=== PATIENT | female | born 1935 | race Caucasian/White ===

== ENCOUNTER 2017-12-25 17:11 | Emergency (ER) | payer MEDICARE, OTHER, SELFPAY ==
[2017-12-25 17:14] VITALS: BP 121/65; PULSE 84; RESP 16; TEMP 36.9; O2SAT 96; BMI 41.8
[2017-12-25 17:20] LABS: Bedside Glucose 153 mg/dL (70-110)
--- NOTE | 2017-12-25 17:39 | CT_ITS ---
STUDY: CT BRAIN WITHOUT CONTRAST REASON FOR EXAM: Female, 82 years old. Weakness. Syncope. RADIATION DOSAGE (If Supplied By Facility): CTDIvol = ( 45 ) mGy, DLP = ( 762 ) mGycm TECHNIQUE: Transaxial CT imaging of the brain was performed without administration of intravenous contrast material. Individualized dose optimization techniques were used for this CT. COMPARISON: None. FINDINGS: There is no acute bleed or infarct. There are chronic ischemic and atrophic changes. The ventricles are normal in configuration. There is no hydrocephalus. The visualized paranasal sinuses are clear. The mastoid air cells are well aerated. There is no skull fracture. CT/Brain/Head without Contrast IMPRESSION: No acute intracranial abnormality. Chronic ischemic and atrophic changes. Electronically Signed: Harinder Johnson, at 18:36 EDT Tel , Service support ,
--- NOTE | 2017-12-25 17:53 | ED.VISSUMM ---
- ER Visit Summary Date of Service: 12/25/17 Chief Complaint: Fall History of Present Illness: The patient is a 82 F presenting after fall. Patient states that her legs just gave out and she fell to the floor. She denies hitting her head or losing consciousness. She states she did not feel dizzy or lightheaded. She had no syncope. She denies chest pain or shortness of breath. She states she is now feeling improved. She denies injury with the fall. She has a history of diabetes but did not feel as if her blood sugar was low. Denies other complaints. Physical Examination: Vitals are stable. Patient is afebrile. Alert no acute distress. HEENT exam is unremarkable. Neck is supple. Nontender Lungs are clear and equal bilaterally. Heart is regular rate and rhythm. Abdomen is soft nontender nondistended. Extremities are unremarkable. Skin is warm and dry. No focal neurologic deficit. NIH 0 Remainder of exam is unremarkable. Emergency Department Course and Treatment: EKG is sinus rate of 70 with no acute ischemic changes. CT head shows no acute process. CBC, chemistries unremarkable other than glucose 138, BUN 22, creatinine 1.28. Urinalysis shows positive leukocytes and nitrites, 5-10 white blood cells. Troponin is negative. Urine culture was sent. Orthostatics were negative. Patient is feeling well in the emergency department. She is able to ambulate and tolerate p.o. in the emergency department. She is requesting to go home. She is given Keflex. She is advised to follow-up with her primary care physician. She is advised return to ED for worsening complaints. Disposition: Discharged home Impression: UTI, fall This note was generated with The [employer] dictation software. It may contain incorrect words, spelling, and punctuation that were not noted in review of the chart prior to signing ED Disposition - Plan for ED Patient: Chief Complaint: Syncope Instructions: ED UTI Cystitis Female Prescriptions: Cephalexin [Keflex] 500 mg PO BID #14 capsule Referrals: NOT,DEFINED [NON-STAFF] -
[2017-12-25 18:05] LABS: Mucous, Urine 0 SEEN /hpf (<or=2+); Red Blood Cells-Urine 0 SEEN /hpf (0-5)
[2017-12-25 18:28] LABS: Absolute Lymphocyte Count 1.44 X10^3/ul (0.83-4.51); Absolute Neutrophil Count 7.8 X10^3/uL (2.0-7.7); Basophil# 0.02 X10^3/uL; Basophil% 0.2 % (0-1); Eosinophil# 0.05 X10^3/uL; Eosinophils% 0.5 % (0-5); Hematocrit 41.1 % (37-47); Hemoglobin 13.6 g/dl (12.0-15.0); Lymphocyte # 1.44 X10^3/ul (4.0); Lymphocyte % 14.5 % (19-41); Mean Corp Hgb Conc 33.1 g/gl (32-36); Mean Corpuscular Hgb 30.1 pg (27.0-32.0); Mean Corpuscular Volume 90.9 fL (81-99); Mean Platelet Vol. 11.1 fl (6.2-12.0); Monocyte# 0.59 X10^3/uL; Neutrophil # 7.79 X10^3/uL (2.7-7.7); Neutrophil % 78.7 % (47-70); Platelet Count 197 K/mm3 (150-450); RBC Distribution Width CV 13.1 % (11.6-14.6); RBC Distribution Width SD 43.2 fl (35.1-43.9); Red Blood Count 4.52 M/mm3 (4.2-5.4); White Blood Count 9.9 K/mm3 (4.4-11.0)
[2017-12-25 18:29] LABS: POSITIVE COUNT NO; POSITIVE DIFFERENTIAL NO; POSITIVE MORPHOLOGY NO
[2017-12-25 18:36] LABS: Color, Urine Yellow (Yellow); Glucose, Dipstick Normal (Normal); Ketone-Dipstick 5 mg/dl (Negative); Leukocyte Esterase-Dipstick 100 /ul (Negative); Nitrite-Dipstick Positive (Negative); Occult Blood-Urine 25 /ul (Negative); Protein-Dipstick 30 mg/dl (Negative); Urine Bilirubin Dipstick Negative (Negative); Urine Clarity Cloudy (Clear); Urine Urobilinogen Normal (Normal)
[2017-12-25 18:45] LABS: Anion Gap 9 (5-15); BUN 22 mg/dL (7-18); BUN/Creat Ratio 17.2 RATIO (10-20); Calcium,Total 9.1 mg/dL (8.5-10.1); Chloride 104 mmol/L (98-107); Creatinine, Serum 1.28 mg/dL (0.55-1.02); EST Glomerular Filtration Rate 43 mL/min (>60); Est Glom Filt Rate - Afr Amer 51 mL/min (>60); Estimated Creatinine Clearance 32.27 ml/min; Glucose 138 mg/dL (74-106); Potassium 4.1 mmol/L (3.5-5.1); Sodium Level 140 mmol/L (136-145)
[2017-12-25 18:50] LABS: Bacteria 2+ /hpf (None Seen); Hyaline Cast 0-5 SEEN /lpf (0-5); Squamous Epithelial Cells - UA 0-5 SEEN /hpf (5-10); White Blood Cells 5-10 SEEN /hpf (0-5)
[2017-12-25 19:03] VITALS: BP 126/67; BP 142/65; BP 142/91; PULSE 65; PULSE 67; PULSE 81
[2017-12-25 19:51] VITALS: BP 126/71; PULSE 85; RESP 16; O2SAT 96
--- NOTE | 2017-12-25 21:33 | ED.DEP ---
ED Disposition - Plan for ED Patient: Chief Complaint: Syncope Instructions: ED UTI Cystitis Female Prescriptions: Cephalexin [Keflex] 500 mg PO BID #14 capsule Referrals: NOT,DEFINED [NON-STAFF] -
[2017-12-25 21:37] VITALS: BP 132/61; PULSE 65; RESP 20; O2SAT 97
[2017-12-25] MEDS: Cephalexin 250 MG Capsule 500 MG PO (21:37)
== END 2017-12-25 21:43 | disposition home or self-care (01) ==
PROVIDERS: Emergency Provider Emergency Medicine
DX: N39.0 Urinary tract infection, site not specified (principal); W19.XXXA Unspecified fall, initial encounter; Y93.9 Activity, unspecified; Y92.9 Unspecified place or not applicable; E11.9 Type 2 diabetes mellitus without complications; Z79.84 Long term (current) use of oral hypoglycemic drugs
CPT/HCPCS: 70450; 80048; 81001; 82962; 84484; 85025; 87077; 87086; 87088; 87186; 93005; 99285

== ENCOUNTER → 2018-07-23 05:30 | Outpatient (REF) | payer MEDICARE, OTHER, SELFPAY ==
[2018-07-23 08:40] LABS: Hematocrit 33.9 % (37-47); Hemoglobin 10.1 g/dl (12.0-15.0); Mean Corp Hgb Conc 29.8 g/gl (32-36); Mean Corpuscular Hgb 29.8 pg (27.0-32.0); Mean Platelet Vol. 11.3 fl (6.2-12.0); Platelet Count 160 K/mm3 (150-450); RBC Distribution Width SD 52.9 fl (35.1-43.9); Red Blood Count 3.39 M/mm3 (4.2-5.4); White Blood Count 5.2 K/mm3 (4.4-11.0)
[2018-07-23 08:42] LABS: Scan Indicated on CBC? Y/N NO
[2018-07-23 09:09] LABS: BNP,B-Type NATRIURETIC PEPTIDE 296.2 pg/mL (0-100)
[2018-07-23 09:14] LABS: BUN 22 mg/dL (7-18); Creatinine, Serum 1.14 mg/dL (0.55-1.02); EST Glomerular Filtration Rate 49 mL/min (>60); Glucose 123 mg/dL (74-106)
[2018-07-23 09:15] LABS: AST(SGOT) 14 U/L (15-37); Alanine Aminotransfer ALT/SGPT 19 U/L (13-56); Albumin, Serum 3.3 g/dL (3.2-5.0); Alkaline Phosphatase 118 U/L (45-117); Anion Gap 7 (5-15); BUN/Creat Ratio 19.3 RATIO (10-20); Calcium,Total 8.3 mg/dL (8.5-10.1); Chloride 110 mmol/L (98-107); Est Glom Filt Rate - Afr Amer 59 mL/min (>60); Globulin 3.3 g/dL (2.2-4.2); Potassium 4.3 mmol/L (3.5-5.1); Protein, Total 6.6 g/dL (6.4-8.2); Sodium Level 143 mmol/L (136-145); Thyroid Stim Hormone (TSH) 4.06 uIU/mL (0.358-3.74)
[2018-07-29 10:19] VITALS: BMI 48.6
== END ==
PROVIDERS: Visit Provider Family Medicine
DX: E11.9 Type 2 diabetes mellitus without complications (principal); I10 Essential (primary) hypertension; R53.83 Other fatigue; Z79.899 Other long term (current) drug therapy
CPT/HCPCS: 36415; 80053; 83880; 84443; 85027

== ENCOUNTER 2018-07-25 16:03 | Inpatient (IN) | payer MEDICARE, OTHER, SELFPAY ==
[2018-07-25] VITALS (12 sets, daily range): BP systolic 101–153; BP diastolic 73–92; PULSE 59–127; RESP 16–26; TEMP 36.3–36.9; O2SAT 92–100; BMI 48.6; BMI 49.1; BMI 49.2
--- NOTE | 2018-07-25 16:31 | RAD_ITS ---
STUDY: X-RAY CHEST REASON FOR EXAM: Female, 83 years old. Chest pain TECHNIQUE: AP COMPARISON: None. FINDINGS: Central pulmonary vascular congestion with interstitial thickening in the central portions of the lungs in the lung bases. No airspace consolidation. No sizable pleural effusion. There is mild cardiac enlargement. Normal mediastinum and rebekah. Normal visualized aortic arch and descending thoracic aorta. No acute bony process. There is no demonstrated abnormality of the visualized soft tissue structures of the upper abdomen. RAD/Chest 1 View (Portable) IMPRESSION: 1. Vascular congestion with interstitial thickening suggesting fluid overload/CHF. No sizable pleural effusion. 2. No airspace consolidation. Electronically Signed: Obed Curiel MD at 17:23 EST , Service support ,
--- NOTE | 2018-07-25 16:31 | EKG12_ITS ---
Test Reason : EDEMA Blood Pressure : / mmHG Vent. Rate : 115 BPM Atrial Rate : 129 BPM P-R Int : 000 ms QRS Dur : 074 ms QT Int : 352 ms P-R-T Axes : 000 073 012 degrees QTc Int : 486 ms Atrial fibrillation with rapid ventricular response with premature ventricular or aberrantly conducte d complexes Low voltage QRS Cannot rule out Anterior infarct , age undetermined Abnormal ECG Confirmed by TERRANCE ESQUIVEL, PAULETTE ([id number]), video tape editor FLO KNIGHT ([id number]) on 07/28/2018 10:02:31 AM Referred By: John Hardy Confirmed By:PAULETTE CARLOS MD
[2018-07-25 16:44] LABS: Absolute Neutrophil Count 3.4 X10^3/uL (2.0-7.7); Basophil# 0.01 X10^3/uL; Basophil% 0.2 % (0-1); Eosinophil# 0.16 X10^3/uL; Eosinophils% 3.1 % (0-5); Hematocrit 35.9 % (37-47); Lymphocyte % 21.2 % (19-41); Mean Corp Hgb Conc 30.6 g/gl (32-36); Mean Corpuscular Hgb 30.1 pg (27.0-32.0); Mean Corpuscular Volume 98.4 fL (81-99); Mean Platelet Vol. 10.9 fl (6.2-12.0); Monocyte# 0.52 X10^3/uL; Neutrophil # 3.38 X10^3/uL (2.7-7.7); Neutrophil % 65.3 % (47-70); Platelet Count 181 K/mm3 (150-450); RBC Distribution Width CV 15.4 % (11.6-14.6); RBC Distribution Width SD 54.5 fl (35.1-43.9); Red Blood Count 3.65 M/mm3 (4.2-5.4); White Blood Count 5.2 K/mm3 (4.4-11.0)
[2018-07-25 16:45] LABS: POSITIVE COUNT NO; POSITIVE DIFFERENTIAL NO; POSITIVE MORPHOLOGY NO
[2018-07-25 16:52] LABS: International Normalized Ratio 1.1; Prothrombin Time (Protime)PT. 14.4 SECONDS (11.7-14.9)
[2018-07-25 16:53] LABS: Partial Thromboplast Time 24.9 Seconds (24.1-36.2)
[2018-07-25 16:56] LABS: Anion Gap 9 (5-15); BUN 21 mg/dL (7-18); BUN/Creat Ratio 19.4 RATIO (10-20); Calcium,Total 8.6 mg/dL (8.5-10.1); Chloride 107 mmol/L (98-107); Creatinine, Serum 1.08 mg/dL (0.55-1.02); EST Glomerular Filtration Rate 52 mL/min (>60); Est Glom Filt Rate - Afr Amer 63 mL/min (>60); Glucose 155 mg/dL (74-106); Potassium 3.9 mmol/L (3.5-5.1); Sodium Level 143 mmol/L (136-145)
[2018-07-25] MEDS: Metoprolol Tartrate 5 MG/5 ML Vial IV (17:15)
[2018-07-25 17:21] LABS: BNP,B-Type NATRIURETIC PEPTIDE 310.3 pg/mL (0-100)
[2018-07-25] MEDS: Metoprolol Tartrate 25 MG Tablet 50 MG PO (17:41)
--- NOTE | 2018-07-25 17:57 | NURSING ---
DR UGO SYED
--- NOTE | 2018-07-25 18:00 | NURSING ---
PCU NEW ONSET AFIB, CHF UGO
--- NOTE | 2018-07-25 18:02 | ED.VISSUMM ---
- ER Visit Summary Date of Service: 07/25/18 Chief Complaint: Wheezing increased lower extremity swelling History of Present Illness: The patient is a 83 F 2 months progressive lower extremity swelling with wheezing. No history of asthma or COPD. No chest pains no palpitations. No fevers. History of diabetes hypercholesterolemia and hypothyroid. Here with daughter from [place]. Reports staff from PCP office seen patient at facility on , blood work return elevated BNP of 249 also decreased iron was placed on iron supplements. Lasix 20 mg orally was started today with first dose. Denies history of [place] or heart failure. No history of cardiac dysrhythmias. Occasional alcohol denies tobacco or illicit drug use. Physical Examination: General: Alert and oriented ?3, no acute distress HEENT: Normocephalic, atraumatic. Moist mucosa membranes Neck: supple, nontender. Cardiovascular: Irregularly irregular tachycardic, no murmurs Respiratory: Normal breath sounds, symmetric, no distress Abdomen: Soft, nontender, nondistended Extremities: Nontender, no edema, pulses intact ?4 Neuro: no focal neurological deficits. Test Results: EKG: A. fib 115, no ST or T wave changes. Hemoglobin 11 white count 5.2. Potassium 3.9 creatinine 1.08. BNP 310 troponin negative. Chest x-ray with CHF findings. Emergency Department Course and Treatment: Patient A. kavon with RVR on arrival, clinical CHF findings. Workup initiated. BNP 310 chest x-ray with slight fluid overload. With her A. kavon was given 1 dose of Lopressor heart rate improved 80-90 is given 50 mg oral metoprolol. Heart rate sustained. With her CHF findings additional 40 mill grams IV Lasix was given. Her chads 2 score is 2. I discussed with hospitalist Dr. Hardy for admission. Will hold anticoagulants at this time during discussion. Admitted to PCU. Treatment Plan: [] Disposition: Admission Impression: 1. New onset A. fib rate controlled 2. New onset CHF This note was generated with [employer] dictation software. It may contain incorrect words, spelling, and punctuation that were not noted in review of the chart prior to signing ED Disposition - Plan for ED Patient: Disposition: Acute Care Hospital [facility] Diagnosis: New onset atrial fibrillation, New onset of congestive heart failure Referrals: Dorina Hernandez MD [Primary Care Provider] -
--- NOTE | 2018-07-25 18:06 | ED.DCSUM_ITS ---
- ER Visit Summary Date of Service: 07/25/18 Chief Complaint: Wheezing increased lower extremity swelling History of Present Illness: The patient is a 83 F 2 months progressive lower extremity swelling with wheezing. No history of asthma or COPD. No chest pains no palpitations. No fevers. History of diabetes hypercholesterolemia and hypothyroid. Here with daughter from [place]. Reports staff from PCP office seen patient at facility on , blood work return elevated BNP of 249 also decreased iron was placed on iron supplements. Lasix 20 mg orally was started today with first dose. Denies history of [place] or heart failure. No history of cardiac dysrhythmias. Occasional alcohol denies tobacco or illicit drug use. Physical Examination: General: Alert and oriented ?3, no acute distress HEENT: Normocephalic, atraumatic. Moist mucosa membranes Neck: supple, nontender. Cardiovascular: Irregularly irregular tachycardic, no murmurs Respiratory: Normal breath sounds, symmetric, no distress Abdomen: Soft, nontender, nondistended Extremities: Nontender, no edema, pulses intact ?4 Neuro: no focal neurological deficits. Test Results: EKG: A. fib 115, no ST or T wave changes. Hemoglobin 11 white count 5.2. Potassium 3.9 creatinine 1.08. BNP 310 troponin negative. Chest x- ray with CHF findings. Emergency Department Course and Treatment: Patient A. kavon with RVR on arrival, clinical CHF findings. Workup initiated. BNP 310 chest x-ray with slight fluid overload. With her A. kavon was given 1 dose of Lopressor heart rate improved 80- 90 is given 50 mg oral metoprolol. Heart rate sustained. With her CHF findings additional 40 mill grams IV Lasix was given. Her chads 2 score is 2. I discussed with hospitalist Dr. Hardy for admission. Will hold anticoagulants at this time during discussion. Admitted to PCU. Treatment Plan: [] Disposition: Admission Impression: 1. New onset A. fib rate controlled 2. New onset CHF This note was generated with Gn[employer] dictation software. It may contain incorrect words, spelling, and punctuation that were not noted in review of the chart prior to signing ED Disposition - Plan for ED Patient: Disposition: Acute Care Hospital [facility] Diagnosis: New onset atrial fibrillation, New onset of congestive heart failure Referrals: Dorina Hernandez MD [Primary Care Provider] -
[2018-07-25] MEDS: Furosemide 40 MG/4 ML Vial IV (18:19)
--- NOTE | 2018-07-25 18:21 | HP.PCM_ITS ---
Problem List (1) New onset atrial fibrillation Status: Acute (2) New onset of congestive heart failure Status: Acute History of Present Illness Date of Admission: 07/25/18 Chief Complaint: shortness of breath. The patient is a 83 year old F for the past few months has been having progressive dyspnea on exertion and edema. Presented to the emergency room today and found to be in atrial fibrillation with RVR. Additionally, was found to be in CHF as well. Received 40 mg of IV Lasix and 50 mg of oral metoprolol. Patient's heart rate has improved and the patient is suddenly feeling better. Patient denies any history of heart failure nor atrial fibrillation before. She was not having chest pain or any palpitations. [] Past Medical History Medical History: Medical History (Last Updated 07/25/18 @ 18:19 by John Hardy DO) DM2 (diabetes mellitus, type 2) E11.9 Allergies No Known Allergies Allergy (Verified 07/25/18 16:04) Home Medications: Ambulatory Orders Medication Instructions Recorded Metformin HCl 500 mg PO BID 12/25/17 Atorvastatin Calcium 40 mg PO DAILY 07/25/18 Fluticasone 44 Mcg [Flovent (SP)] 2 puff INHALATION DAILY 07/25/18 Lasix 20 mg DAILY 07/25/18 Meloxicam [Mobic] 7.5 mg PO DAILY 07/25/18 Psychiatric History: No pertinent psych hx Smoking Status: Never smoker Tobacco Use: Non-smoker Alcohol: None - *Family History Maternal History Items: - - no heart disease Review of Systems Constitutional: Reports: Weight Change - Increased weight over the past few months unclear how much.. Denies: Anorexia, Chills, Fever, Night Sweats, Malaise, Weakness Eyes: Denies: Blurred vision, Double vision HEENT: Denies: Head Aches, Sinus Congestion, Sinus Drainage Cardiovascular: Reports: Edema. Denies: Chest Pain, Palpitations Respiratory: Reports: Shortness of Breath, Shortness of breath upon exertion Gastrointestinal: Denies: Abdominal Pain, Nausea, Vomiting Genitourinary: Denies: Dysuria Musculoskeletal: Denies: Joint Pain, Joint Tenderness Skin: Denies: Rash, Wounds Neurological: Denies: Blurred vision, Double vision, Focal weakness, Numbness, Tingling Psychiatric: Denies: Anxiety, Depression Endocrine: Reports: Change in Body Habitus. Denies: Heat/ Cold Intolerance Hematologic/ Lymphatic: Denies: Easy Bruising, Easy Bleeding, Hx of blood clot Comment: A 10 point review of systems were negative except as mentioned in the history of present illness and the other review of systems. VTE Information - Inpt Only VTE Present on Admission: No VTE Mechan Device Prophylaxis: None VTE Pharm Prophylaxis ordered?: Yes Patient Problems: Active and Suspected Problems (Last Updated 07/25/18 @ 18:19 by John Hardy DO) New onset atrial fibrillation (Acute) New onset of congestive heart failure (Acute) - Physical Exam General: Alert, No apparent distress HEENT: Atraumatic, Normocephalic, - - No scleral icterus Oral: Moist Mucosa, No Gingival or Mucosal Lesions/ Ulcerations Neck: No Nodes, Thyroid Normal Size and Texture, - - Positive JVD Lungs: Clear to auscultation, Diminished Cardiovascular: No murmurs, Irregular Rate, - - Distant heart sounds Abdomen: Bowel Sounds Present, Soft, Non Tender, Non-Distended, No Hepato- splenomegaly Extremities: No Calf Tenderness, Edema Skin: No rashes, No breakdown Musculoskeletal: No Tenderness to Palpation of Joints or Extremities, No Muscle Wasting Neurological: Sensory exam intact to light touch and pain, - - No clonus Psych/Mental Status: Normal Affect, Appropriate Vital Signs Temp Pulse Resp BP Pulse Ox 36.6 C 95 26 H 131/82 H 98 07/25/18 16:05 07/25/18 17:28 07/25/18 17:28 07/25/18 17:28 07/25/18 17:28 Oxygen Flow Rate (L/min) 3 Oxygen Delivery Method Room Air Weight: 136.622 kg Body Mass Index (BMI) 48.6 Laboratory Tests Past 24 Hrs 07/25/18 07/25/18 07/25/18 16:20 16:20 16:20 WBC 5.2 RBC 3.65 L Hgb 11.0 L Hct 35.9 L MCV 98.4 MCH 30.1 MCHC 30.6 L RDW 15.4 H RDW Differential 54.5 H Plt Count 181 MPV 10.9 Immature Gran % (Auto) 0.200 Neut % (Auto) 65.3 Lymph % (Auto) 21.2 [place] % (Auto) 10.0 Eos % (Auto) 3.1 Baso % (Auto) 0.2 Absolute Neuts (auto) 3.4 Absolute Lymphs (auto) 1.10 Total Counted Not Reportable PT 14.4 INR 1.1 APTT 24.9 Sodium 143 Potassium 3.9 Chloride 107 Carbon Dioxide 27.0 Anion Gap 9 BUN 21 H Creatinine 1.08 H Estim Creat Clear Calc 37.60 Est GFR (MDRD) Af Amer 63 Est GFR (MDRD) Non-Af 52 L BUN/Creatinine Ratio 19.4 Glucose 155 H Calcium 8.6 Troponin I < 0.015 B-Natriuretic Peptide 07/25/18 16:20 WBC RBC Hgb Hct MCV MCH MCHC RDW RDW Differential Plt Count MPV Immature Gran % (Auto) Neut % (Auto) Lymph % (Auto) [place] % (Auto) Eos % (Auto) Baso % (Auto) Absolute Neuts (auto) Absolute Lymphs (auto) Total Counted PT INR APTT Sodium Potassium Chloride Carbon Dioxide Anion Gap BUN Creatinine Estim Creat Clear Calc Est GFR (MDRD) Af Amer Est GFR (MDRD) Non-Af BUN/Creatinine Ratio Glucose Calcium Troponin I B-Natriuretic Peptide 310.3 H EKG showed atrial fibrillation with RVR but no acute changes. Chest x-ray showed bilateral pulmonary vascular congestion. Assessment/Plan All Active Problems (Last Updated 07/25/18 @ 18:19 by John Hardy DO) New onset atrial fibrillation (Acute) New onset of congestive heart failure (Acute) 1. Atrial fibrillation with RVR: Currently rate controlled after oral metoprolol. New diagnosis but I doubt new onset. [id number] score of 5. Patient will be on therapeutic Lovenox. Will need to adjust based on results of the echocardiogram if patient can go on to a novel anticoagulant versus Coumadin depending on her valves. We will hold off on cardiology consultation at this point time as patient seems to be improving but patient does have significant LV dysfunction or if atrial fibrillation becomes uncontrolled again then may consider consulting cardiology inpatient. If not, then patient will certainly need follow-up with cardiology outpatient. 2. Heart failure: Unclear type. Echocardiogram ordered to define if patient has preserved or reduced ejection fraction. Patient will be on Lasix 40 mg twice daily. Unclear if the A. fib with RVR because of CHF or vice versa. 3. Diabetes mellitus type 2: Hold metformin in light of the heart failure start sliding scale. Check an A1c. 4. DVT prophylaxis: Patient will be anticoagulated. Code Visit Inpatient E&M: 70735 Init Hosp L3
--- NOTE | 2018-07-25 18:52 | ECHOD_ITS ---
Reason For Study: CHF Procedure This was a 2D Doppler, Color Flow transthoracic echocardiogram. Exam performed portable in patient room. Left Ventricle Normal LV size. The estimated ejection fraction is 50 %. Stage 3 diastolic dysfunction. No regional wall motion abnormalities noted. Right Ventricle Normal RV size. Normal systolic function. Atria The left atrium is moderately enlarged. The right atrium is mildly enlarged. Mitral Valve Normal mitral valve. Mild (1+) eccentric mitral valve insufficiency. Tricuspid Valve Normal tricuspid valve. Aortic Valve Normal aortic valve. Trisinus/trileaflet aortic valve. Pulmonic Valve Normal pulmonic valve. Great Vessels Normal aortic root. The pulmonary artery is normal size. Normal inferior vena cava. Pericardium/Pleural No pericardial effusion. MMode/2D Measurements & Calculations LVIDd: 4.2 cm IVSd: 1.3 cm Ao root diam: 3.0 cm LVIDs: 2.1 cm LVPWd: 1.1 cm LA dimension: 4.1 cm RVDd: 3.4 cm FS: 49.8 % LAV(MOD-sp4): 76.9 ml LA A4 area: 25.0 cm2 RA A4 area: 23.1 cm2 Time Measurements MV dec time: 0.15 sec Doppler Measurements & Calculations MV E max aliyah: 110.5 cm/sec MV V2 max: 121.6 cm/sec Ao V2 max: 104.7 cm/sec MV A max aliyah: 41.0 cm/sec MV max P.9 mmHg Ao max P.4 mmHg MV E/A: 2.7 MV V2 mean: 48.9 cm/sec MV mean P.3 mmHg MV V2 VTI: 32.3 cm LV V1 max: 84.3 cm/sec PA V2 max: 61.5 cm/sec TR max aliyah: 217.6 cm/sec LV V1 max P.8 mmHg TR max P.9 mmHg Interpretation Summary Normal LV size. The estimated ejection fraction is 50 %. Stage 3 diastolic dysfunction. Mild (1+) eccentric mitral valve insufficiency. Ordering Physician: John Hardy Referring Physician: John Hardy Performed By: Guillermo Echavarria RCS
[2018-07-25 20:25] LABS: Bedside Glucose 148 mg/dL (70-110)
[2018-07-25] MEDS: Budesonide Respules 0.5 MG/2 ML AMPUL.NEB. INHALATION (20:54)
[2018-07-25] MEDS: Metoprolol Tartrate 50 MG Tablet PO (21:24)
[2018-07-25] MEDS: Enoxaparin 150 MG/ML Syringe 140 MG SC (21:24)
[2018-07-25] MEDS: Atorvastatin Calcium 40 MG Tablet PO (21:24)
[2018-07-26] VITALS (16 sets, daily range): BP systolic 112–132; BP diastolic 58–75; PULSE 71–86; RESP 16–20; TEMP 36.8–36.9; O2SAT 86–100
[2018-07-26 06:18] LABS: Hematocrit 33.2 % (37-47); Mean Corp Hgb Conc 30.1 g/gl (32-36); Mean Corpuscular Hgb 29.9 pg (27.0-32.0); Mean Corpuscular Volume 99.1 fL (81-99); Mean Platelet Vol. 11.3 fl (6.2-12.0); Platelet Count 159 K/mm3 (150-450); RBC Distribution Width CV 14.9 % (11.6-14.6); RBC Distribution Width SD 51.3 fl (35.1-43.9); Red Blood Count 3.35 M/mm3 (4.2-5.4); White Blood Count 4.8 K/mm3 (4.4-11.0)
[2018-07-26 06:21] LABS: Scan Indicated on CBC? Y/N NO
[2018-07-26 06:55] LABS: Bedside Glucose 108 mg/dL (70-110)
[2018-07-26 06:58] LABS: ALB/GLOB Ratio 0.9 RATIO (0.9-2.4); AST(SGOT) 17 U/L (15-37); Alanine Aminotransfer ALT/SGPT 24 U/L (13-56); Alkaline Phosphatase 108 U/L (45-117); Anion Gap 9 (5-15); BUN 21 mg/dL (7-18); BUN/Creat Ratio 21.8 RATIO (10-20); Calcium,Total 8.3 mg/dL (8.5-10.1); Chloride 109 mmol/L (98-107); Cholesterol 122 mg/dL (200); Creatinine, Serum 0.96 mg/dL (0.55-1.02); EST Glomerular Filtration Rate 59 mL/min (>60); Est Glom Filt Rate - Afr Amer 71 mL/min (>60); Globulin 3.2 g/dL (2.2-4.2); Glucose 112 mg/dL (74-106); High Density Lipoprotein 73 mg/dL; Protein, Total 6.2 g/dL (6.4-8.2); Sodium Level 144 mmol/L (136-145); Thyroid Stim Hormone (TSH) 3.09 uIU/mL (0.358-3.74); Triglycerides 61 mg/dL; Very Low Density Lipoprotein 12 mg/dL (5-40)
[2018-07-26] MEDS: Glucerna Shake 120 ML LIQUID PO ×2 (07:47→11:09)
[2018-07-26 08:06] LABS: Hemoglobin A1c 6.2 % (4.2-6.3)
--- NOTE | 2018-07-26 08:47 | CPS ---
pt placed back on 2 lpm...nurse aware
[2018-07-26] MEDS: Furosemide 40 MG/4 ML Vial IV ×2 (09:16→17:06)
[2018-07-26] MEDS: Enoxaparin 150 MG/ML Syringe 140 MG SC ×2 (09:17→21:06)
[2018-07-26] MEDS: Metoprolol Tartrate 50 MG Tablet PO ×2 (09:17→21:06)
[2018-07-26 11:16] LABS: Bedside Glucose 147 mg/dL (70-110)
--- NOTE | 2018-07-26 12:16 | PCM.PN.HOSP ---
Patient Problems: Active and Suspected Problems (Last Updated 07/25/18 @ 18:19 by John Hardy DO) New onset atrial fibrillation (Acute) New onset of congestive heart failure (Acute) Subjective: Patient seen and examined. She was admitted overnight with a complaint of shortness of breath and edema. On arrival in the ED, she was found to be in A. fib with RVR as well as CHF exacerbation of unknown EF. She was started on IV Lasix and on metoprolol. Patient seen and examined this morning. He had no complaints. Says shortness of breath had improved and palpation sounds are also improved. She is never been told she has heart failure or atrial fibrillation before. Review of systems otherwise negative. Labs and vitals reviewed. Vitals/I&O's: Vital Signs Temp Pulse Resp BP Pulse Ox 98.5 F 76 16 120/58 L 99 07/26/18 09:05 07/26/18 10:58 07/26/18 09:05 07/26/18 09:17 07/26/18 09:05 Oxygen Flow Rate (L/min) 2 Oxygen Delivery Method Nasal Cannula Weight: 300 lb 4.313 oz Body Mass Index (BMI) 49.1 Intake and Output for Last 24 Hours 07/24/18 07/25/18 07/27/18 23:59 23:59 00:59 Intake Total 100 / 100 360 / 360 Balance 100 / 100 360 / 360 General: Alert, Oriented x3, Cooperative, No apparent distress HEENT: Atraumatic, PERRLA, EOMI, Normocephalic Oral: Moist Mucosa Neck: Supple, No JVD, Negative Carotid Bruits Lungs: Clear to auscultation, Normal air movement, No rhonchi, No wheeze, No rales Cardiovascular: Normal S1, Normal S2, Irregular Rate Abdomen: Bowel Sounds Present, Soft, Non Tender, Non-Distended, No Hepato-splenomegaly Extremities: No clubbing, No cyanosis, No edema, Capillary Refill Less than 3 Seconds Skin: No rashes, No breakdown Musculoskeletal: No Tenderness to Palpation of Joints or Extremities Lymphatic: No Cervical, Supraclavicular, or Inguinal Adenopathy Neurological: Cranial nerves II-XII grossly intact, Neuro grossly intact, Motor Exam 5/5 strength throughout Psych/Mental Status: Normal Affect, Appropriate, Alert and oriented to time, place, person, mood and affect Laboratory Results 07/25/18 16:20: WBC 5.2, RBC 3.65 L, Hgb 11.0 L, Hct 35.9 L, MCV 98.4, MCH 30.1, MCHC 30.6 L, RDW 15.4 H, RDW Differential 54.5 H, Plt Count 181, MPV 10.9, Immature Gran % (Auto) 0.200, Neut % (Auto) 65.3, Lymph % (Auto) 21.2, [place] % (Auto) 10.0, Eos % (Auto) 3.1, Baso % (Auto) 0.2, Absolute Neuts (auto) 3.4, Absolute Lymphs (auto) 1.10, Total Counted Not Reportable 07/25/18 16:20: Sodium 143, Potassium 3.9, Chloride 107, Carbon Dioxide 27.0, Anion Gap 9, BUN 21 H, Creatinine 1.08 H, Estim Creat Clear Calc 37.60, Est GFR (MDRD) Af Amer 63, Est GFR (MDRD) Non-Af 52 L, BUN/Creatinine Ratio 19.4, Glucose 155 H, Calcium 8.6, Troponin I < 0.015 07/25/18 16:20: PT 14.4, INR 1.1, APTT 24.9 07/25/18 16:20: B-Natriuretic Peptide 310.3 H 07/25/18 19:51: Troponin I 0.016 07/25/18 19:55: POC Glucose 148 H 07/25/18 22:26: Troponin I 0.017 07/26/18 06:00: WBC 4.8, RBC 3.35 L, Hgb 10.0 L, Hct 33.2 L, MCV 99.1 H, MCH 29.9, MCHC 30.1 L, RDW 14.9 H, RDW Differential 51.3 H, Plt Count 159, MPV 11.3 07/26/18 06:00: Sodium 144, Potassium 4.0, Chloride 109 H, Carbon Dioxide 26.0, Anion Gap 9, BUN 21 H, Creatinine 0.96, Estim Creat Clear Calc 42.30, Est GFR (MDRD) Af Amer 71, Est GFR (MDRD) Non-Af 59 L, BUN/Creatinine Ratio 21.8 H, Glucose 112 H, Calcium 8.3 L, Total Bilirubin 0.70, AST 17, ALT 24, Alkaline Phosphatase 108, Total Protein 6.2 L, Albumin 3.0 L, Globulin 3.2, Albumin/Globulin Ratio 0.9, Triglycerides 61, Cholesterol 122, LDL Cholesterol 37, VLDL Cholesterol 12, HDL Cholesterol 73, TSH 3.09 07/26/18 06:00: Hemoglobin A1c 6.2 07/26/18 06:45: POC Glucose 108 07/26/18 11:07: POC Glucose 147 H Diagnostic Data Chest X-Ray 07/25/18 16:31 IMPRESSION: 1. Vascular congestion with interstitial thickening suggesting fluid overload/CHF. No sizable pleural effusion. 2. No airspace consolidation. Electronically Signed: Obed Curiel MD at 17:23 EST , Service support , Current Medications Acetaminophen (Tylenol) 650 mg PO Q6H PRN PRN PRN Reason: Mild Pain (1-3)/Temp > 100.7 F Atorvastatin Calcium (Lipitor) 40 mg PO DAILY@2200 [facility] Last Admin: 07/25/18 21:24 Dose: 40 mg Budesonide (Pulmicort Aerosol) 0.5 mg INHALATION Q12H.RT [facility] Last Admin: 07/26/18 08:00 Dose: Not Given Dextrose (D50w Syringe) 0 gm IV X1 PRN; Protocol PRN Reason: Hypoglycemia Enoxaparin Sodium (Lovenox) 140 mg 1 mg/kg (140 mg) SC Q12 [facility] Last Admin: 07/26/18 09:17 Dose: 140 mg Furosemide (Lasix) 40 mg IV BIDLX [facility] Last Admin: 07/26/18 09:16 Dose: 40 mg Glucagon () 1 mg IM .X1 PRN PRN Reason: Hypoglycemia Insulin Human Lispro (Humalog Kwikpen (Bkc)) 0 unit SQ TIDAC [facility]; Protocol Last Admin: 07/26/18 11:08 Dose: Not Given Magnesium Hydroxide (Milk Of Magnesia) 30 ml PO DAILY PRN PRN Reason: Constipation Metoprolol Tartrate (Lopressor (Beta Sujatha)) 50 mg PO BID [facility] Last Admin: 07/26/18 09:17 Dose: 50 mg Nutritional Formula (Lactose Free) (Glucerna Shake) 120 ml PO TIDCM [facility] Last Admin: 07/26/18 11:09 Dose: 120 ml Ondansetron HCl (Zofran) 4 mg IV Q8H PRN PRN PRN Reason: NAUSEA Sodium Chloride () 5 - 15 ml IV UD PRN PRN Reason: SALINE FLUSH Medical Necessity - Tobacco Use Smoking Status: Never smoker Tobacco Use: Non-smoker Assessment/Plan All Active Problems (Last Updated 07/25/18 @ 18:19 by John Hardy DO) New onset atrial fibrillation (Acute) New onset of congestive heart failure (Acute) 1. Afib with RVR new onset AFib. Now rate controlled CHADVASC score is 5 on metoprolol and therapeutic lovenox 2D echo is pending. TSH was WNL at 3 2. Heart failure of unknown EF BNP was elevated at 310 on admission; has no known history of heart failure. 2D echo ordered. IV Lasix 40 mg twice daily. Will get cardiology consult after reviewing echo. 2. Diabetes mellitus type 2: On insulin sliding scale. Metformin held on account of heart failure. A1c is. 6.2 DVT prophylaxis: On therapeutic Lovenox for A. fib. Code Visit Inpatient E&M: 29278 [facility] Hosp L3
--- NOTE | 2018-07-26 12:22 | PN_ITS ---
Patient Problems: Active and Suspected Problems (Last Updated 07/25/18 @ 18:19 by John Hardy DO) New onset atrial fibrillation (Acute) New onset of congestive heart failure (Acute) Subjective: Patient seen and examined. She was admitted overnight with a complaint of shortness of breath and edema. On arrival in the ED, she was found to be in A. fib with RVR as well as CHF exacerbation of unknown EF. She was started on IV Lasix and on metoprolol. Patient seen and examined this morning. He had no complaints. Says shortness of breath had improved and palpation sounds are also improved. She is never been told she has heart failure or atrial fibrillation before. Review of systems otherwise negative. Labs and vitals reviewed. Vitals/I&O's: Vital Signs Temp Pulse Resp BP Pulse Ox 98.5 F 76 16 120/58 L 99 07/26/18 09:05 07/26/18 10:58 07/26/18 09:05 07/26/18 09:17 07/26/18 09:05 Oxygen Flow Rate (L/min) 2 Oxygen Delivery Method Nasal Cannula Weight: 300 lb 4.313 oz Body Mass Index (BMI) 49.1 Intake and Output for Last 24 Hours 07/24/18 07/25/18 07/27/18 23:59 23:59 00:59 Intake Total 100 / 100 360 / 360 Balance 100 / 100 360 / 360 General: Alert, Oriented x3, Cooperative, No apparent distress HEENT: Atraumatic, PERRLA, EOMI, Normocephalic Oral: Moist Mucosa Neck: Supple, No JVD, Negative Carotid Bruits Lungs: Clear to auscultation, Normal air movement, No rhonchi, No wheeze, No rales Cardiovascular: Normal S1, Normal S2, Irregular Rate Abdomen: Bowel Sounds Present, Soft, Non Tender, Non-Distended, No Hepato- splenomegaly Extremities: No clubbing, No cyanosis, No edema, Capillary Refill Less than 3 Seconds Skin: No rashes, No breakdown Musculoskeletal: No Tenderness to Palpation of Joints or Extremities Lymphatic: No Cervical, Supraclavicular, or Inguinal Adenopathy Neurological: Cranial nerves II-XII grossly intact, Neuro grossly intact, Motor Exam 5/5 strength throughout Psych/Mental Status: Normal Affect, Appropriate, Alert and oriented to time, place, person, mood and affect Laboratory Results 07/25/18 16:20: WBC 5.2, RBC 3.65 L, Hgb 11.0 L, Hct 35.9 L, MCV 98.4, MCH 30.1, MCHC 30.6 L, RDW 15.4 H, RDW Differential 54.5 H, Plt Count 181, MPV 10.9, Immature Gran % (Auto) 0.200, Neut % (Auto) 65.3, Lymph % (Auto) 21.2, [place] % (Auto) 10.0, Eos % (Auto) 3.1, Baso % (Auto) 0.2, Absolute Neuts (auto) 3.4, Absolute Lymphs (auto) 1.10, Total Counted Not Reportable 07/25/18 16:20: Sodium 143, Potassium 3.9, Chloride 107, Carbon Dioxide 27.0, Anion Gap 9, BUN 21 H, Creatinine 1.08 H, Estim Creat Clear Calc 37.60, Est GFR (MDRD) Af Amer 63, Est GFR (MDRD) Non-Af 52 L, BUN/Creatinine Ratio 19.4, Glucose 155 H, Calcium 8.6, Troponin I < 0.015 07/25/18 16:20: PT 14.4, INR 1.1, APTT 24.9 07/25/18 16:20: B-Natriuretic Peptide 310.3 H 07/25/18 19:51: Troponin I 0.016 07/25/18 19:55: POC Glucose 148 H 07/25/18 22:26: Troponin I 0.017 07/26/18 06:00: WBC 4.8, RBC 3.35 L, Hgb 10.0 L, Hct 33.2 L, MCV 99.1 H, MCH 29.9, MCHC 30.1 L, RDW 14.9 H, RDW Differential 51.3 H, Plt Count 159, MPV 11.3 07/26/18 06:00: Sodium 144, Potassium 4.0, Chloride 109 H, Carbon Dioxide 26.0, Anion Gap 9, BUN 21 H, Creatinine 0.96, Estim Creat Clear Calc 42.30, Est GFR (MDRD) Af Amer 71, Est GFR (MDRD) Non-Af 59 L, BUN/Creatinine Ratio 21.8 H, Glucose 112 H, Calcium 8.3 L, Total Bilirubin 0.70, AST 17, ALT 24, Alkaline Phosphatase 108, Total Protein 6.2 L, Albumin 3.0 L, Globulin 3.2, Albumin/Globulin Ratio 0.9, Triglycerides 61, Cholesterol 122, LDL Cholesterol 37, VLDL Cholesterol 12, HDL Cholesterol 73, TSH 3.09 07/26/18 06:00: Hemoglobin A1c 6.2 07/26/18 06:45: POC Glucose 108 07/26/18 11:07: POC Glucose 147 H Diagnostic Data Chest X-Ray 07/25/18 16:31 IMPRESSION: 1. Vascular congestion with interstitial thickening suggesting fluid overload/CHF. No sizable pleural effusion. 2. No airspace consolidation. Electronically Signed: Obed Curiel MD at 17:23 EST , Service support , Current Medications Acetaminophen (Tylenol) 650 mg PO Q6H PRN PRN PRN Reason: Mild Pain (1-3)/Temp > 100.7 F Atorvastatin Calcium (Lipitor) 40 mg PO DAILY@2200 [facility] Last Admin: 07/25/18 21:24 Dose: 40 mg Budesonide (Pulmicort Aerosol) 0.5 mg INHALATION Q12H.RT [facility] Last Admin: 07/26/18 08:00 Dose: Not Given Dextrose (D50w Syringe) 0 gm IV X1 PRN; Protocol PRN Reason: Hypoglycemia Enoxaparin Sodium (Lovenox) 140 mg 1 mg/kg (140 mg) SC Q12 [facility] Last Admin: 07/26/18 09:17 Dose: 140 mg Furosemide (Lasix) 40 mg IV BIDLX [facility] Last Admin: 07/26/18 09:16 Dose: 40 mg Glucagon () 1 mg IM .X1 PRN PRN Reason: Hypoglycemia Insulin Human Lispro (Humalog Kwikpen (Bkc)) 0 unit SQ TIDAC [facility]; Protocol Last Admin: 07/26/18 11:08 Dose: Not Given Magnesium Hydroxide (Milk Of Magnesia) 30 ml PO DAILY PRN PRN Reason: Constipation Metoprolol Tartrate (Lopressor (Beta Sujatha)) 50 mg PO BID [facility] Last Admin: 07/26/18 09:17 Dose: 50 mg Nutritional Formula (Lactose Free) (Glucerna Shake) 120 ml PO TIDCM JOSEY Last Admin: 07/26/18 11:09 Dose: 120 ml Ondansetron HCl (Zofran) 4 mg IV Q8H PRN PRN PRN Reason: NAUSEA Sodium Chloride () 5 - 15 ml IV UD PRN PRN Reason: SALINE FLUSH Medical Necessity - Tobacco Use Smoking Status: Never smoker Tobacco Use: Non-smoker Assessment/Plan All Active Problems (Last Updated 07/25/18 @ 18:19 by John Hardy DO) New onset atrial fibrillation (Acute) New onset of congestive heart failure (Acute) 1. Afib with RVR * new onset AFib. Now rate controlled * CHADVASC score is 5 * on metoprolol and therapeutic lovenox * 2D echo is pending. * TSH was WNL at 3 * 2. Heart failure of unknown EF * BNP was elevated at 310 on admission; has no known history of heart failure. * 2D echo ordered. * IV Lasix 40 mg twice daily. * Will get cardiology consult after reviewing echo. * 2. Diabetes mellitus type 2: On insulin sliding scale. Metformin held on account of heart failure. A1c is. 6.2 DVT prophylaxis: On therapeutic Lovenox for A. fib. Code Visit Inpatient E&M: 07786 Subs Hosp L3
[2018-07-26] MEDS: Insulin Lispro 100 UNIT/ML INSULN.PEN SQ (15:55)
[2018-07-26 16:11] LABS: Bedside Glucose 163 mg/dL (70-110)
[2018-07-26] MEDS: Budesonide Respules 0.5 MG/2 ML AMPUL.NEB. INHALATION (20:00)
[2018-07-26] MEDS: Atorvastatin Calcium 40 MG Tablet PO (21:06)
[2018-07-26 21:15] LABS: Bedside Glucose 139 mg/dL (70-110)
[2018-07-27] VITALS (14 sets, daily range): BP systolic 101–151; BP diastolic 46–82; PULSE 59–96; RESP 16–24; TEMP 36.4–37; O2SAT 95–98
[2018-07-27 05:34] LABS: Anion Gap 9 (5-15); BUN 26 mg/dL (7-18); BUN/Creat Ratio 23.4 RATIO (10-20); Calcium,Total 8.4 mg/dL (8.5-10.1); Chloride 105 mmol/L (98-107); Creatinine, Serum 1.11 mg/dL (0.55-1.02); EST Glomerular Filtration Rate 50 mL/min (>60); Est Glom Filt Rate - Afr Amer 61 mL/min (>60); Estimated Creatinine Clearance 36.58 ml/min; Glucose 97 mg/dL (74-106); Potassium 3.8 mmol/L (3.5-5.1); Sodium Level 144 mmol/L (136-145)
[2018-07-27 06:00] LABS: Absolute Lymphocyte Count 1.27 X10^3/ul (0.83-4.51); Absolute Neutrophil Count 2.4 X10^3/uL (2.0-7.7); Basophil# 0.03 X10^3/uL; Basophil% 0.7 % (0-1); Eosinophil# 0.15 X10^3/uL; Eosinophils% 3.3 % (0-5); Hematocrit 32.7 % (37-47); Hemoglobin 9.8 g/dl (12.0-15.0); Lymphocyte # 1.27 X10^3/ul (4.0); Lymphocyte % 28.3 % (19-41); Mean Corpuscular Hgb 29.9 pg (27.0-32.0); Mean Corpuscular Volume 99.7 fL (81-99); Mean Platelet Vol. 11.4 fl (6.2-12.0); Monocyte# 0.61 X10^3/uL; Monocyte% 13.6 % (0-10); Neutrophil # 2.42 X10^3/uL (2.7-7.7); Neutrophil % 53.9 % (47-70); Platelet Count 152 K/mm3 (150-450); RBC Distribution Width CV 14.8 % (11.6-14.6); RBC Distribution Width SD 51.1 fl (35.1-43.9); Red Blood Count 3.28 M/mm3 (4.2-5.4); White Blood Count 4.5 K/mm3 (4.4-11.0)
[2018-07-27 06:09] LABS: POSITIVE COUNT NO; POSITIVE DIFFERENTIAL NO; POSITIVE MORPHOLOGY NO
[2018-07-27] MEDS: Budesonide Respules 0.5 MG/2 ML AMPUL.NEB. INHALATION ×2 (06:32→20:03)
[2018-07-27 07:01] LABS: Bedside Glucose 95 mg/dL (70-110)
[2018-07-27] MEDS: Enoxaparin 150 MG/ML Syringe 140 MG SC (09:34)
[2018-07-27] MEDS: Furosemide 40 MG/4 ML Vial IV ×2 (09:35→17:10)
[2018-07-27] MEDS: Metoprolol Tartrate 50 MG Tablet PO ×2 (09:35→23:32)
--- NOTE | 2018-07-27 09:58 | CASEMGMT ---
JEREMIAH faxed updates to [place]. JEREMIAH will also talk with patient and/or family to discuss d/c plan. Flori PARKER MSW
--- NOTE | 2018-07-27 10:50 | CASEMGMT ---
JEREMIAH spoke with patient and confirmed her plan is to return to [place] at d/c. She does not wear O2 at [place]. She thinks her daughter will be back and could transport her back to [place]. JEREMIAH will follow to see if patient qualifies for O2. Flori PARKER MSW
[2018-07-27] MEDS: Insulin Lispro 100 UNIT/ML INSULN.PEN SQ (11:31)
[2018-07-27 11:36] LABS: Bedside Glucose 169 mg/dL (70-110)
--- NOTE | 2018-07-27 15:23 | PCM.PN.HOSP ---
Patient Problems: Active and Suspected Problems (Last Updated 07/25/18 @ 18:19 by John Hardy DO) New onset atrial fibrillation (Acute) New onset of congestive heart failure (Acute) Subjective: Patient seen and examined. She has no complaints and feels well. Review of systems otherwise negative. Heart rate has remained controlled. Will DC Lovenox and start patient on Eliquis. She is awaiting 2D echo. labs and vitals reviewed. Vitals/I&O's: Vital Signs Temp Pulse Resp BP Pulse Ox 97.6 F L 96 18 101/46 L 95 07/27/18 14:50 07/27/18 14:50 07/27/18 14:50 07/27/18 14:50 07/27/18 14:50 Oxygen Flow Rate (L/min) 2 Oxygen Delivery Method Room Air Weight: 292 lb 1.8 oz Body Mass Index (BMI) 49.1 Intake and Output for Last 24 Hours 07/25/18 07/26/18 07/27/18 22:59 23:59 23:59 Intake Total 200 / 200 Output Total 1050 / 1050 Balance -850 / -850 General: Alert, Oriented x3, Cooperative, No apparent distress HEENT: Atraumatic, PERRLA, EOMI, Normocephalic Oral: Moist Mucosa Neck: Supple, No JVD, Negative Carotid Bruits Lungs: Clear to auscultation, Normal air movement, No rhonchi, No wheeze, No rales Cardiovascular: Normal S1, Normal S2, Irregular Rate Abdomen: Bowel Sounds Present, Soft, Non Tender, Non-Distended, No Hepato-splenomegaly Extremities: No clubbing, No cyanosis, No edema, Capillary Refill Less than 3 Seconds Skin: No rashes, No breakdown Musculoskeletal: No Tenderness to Palpation of Joints or Extremities Lymphatic: No Cervical, Supraclavicular, or Inguinal Adenopathy Neurological: Cranial nerves II-XII grossly intact, Neuro grossly intact, Motor Exam 5/5 strength throughout Psych/Mental Status: Normal Affect, Appropriate, Alert and oriented to time, place, person, mood and affect Laboratory Results 07/26/18 15:50: POC Glucose 163 H 07/26/18 21:05: POC Glucose 139 H 07/27/18 04:50: WBC 4.5, RBC 3.28 L, Hgb 9.8 L, Hct 32.7 L, MCV 99.7 H, MCH 29.9, MCHC 30.0 L, RDW 14.8 H, RDW Differential 51.1 H, Plt Count 152, MPV 11.4, Immature Gran % (Auto) 0.200, Neut % (Auto) 53.9, Lymph % (Auto) 28.3, [place] % (Auto) 13.6 H, Eos % (Auto) 3.3, Baso % (Auto) 0.7, Absolute Neuts (auto) 2.4, Absolute Lymphs (auto) 1.27, Total Counted Not Reportable 07/27/18 04:50: Sodium 144, Potassium 3.8, Chloride 105, Carbon Dioxide 30.0, Anion Gap 9, BUN 26 H, Creatinine 1.11 H, Estim Creat Clear Calc 36.58, Est GFR (MDRD) Af Amer 61, Est GFR (MDRD) Non-Af 50 L, BUN/Creatinine Ratio 23.4 H, Glucose 97, Calcium 8.4 L 07/27/18 06:57: POC Glucose 95 07/27/18 11:23: POC Glucose 169 H Current Medications Acetaminophen (Tylenol) 650 mg PO Q6H PRN PRN PRN Reason: Mild Pain (1-3)/Temp > 100.7 F Apixaban (Eliquis) 2.5 mg PO BID [facility] Atorvastatin Calcium (Lipitor) 40 mg PO DAILY@2200 [facility] Last Admin: 07/26/18 21:06 Dose: 40 mg Budesonide (Pulmicort Aerosol) 0.5 mg INHALATION Q12H.RT [facility] Last Admin: 07/27/18 06:32 Dose: 0.5 mg Dextrose (D50w Syringe) 0 gm IV X1 PRN; Protocol PRN Reason: Hypoglycemia Furosemide (Lasix) 40 mg IV BIDLX [facility] Last Admin: 07/27/18 09:35 Dose: 40 mg Glucagon () 1 mg IM .X1 PRN PRN Reason: Hypoglycemia Insulin Human Lispro (Humalog Kwikpen (Bkc)) 0 unit SQ TIDAC [facility]; Protocol Last Admin: 07/27/18 11:31 Dose: 1 u Magnesium Hydroxide (Milk Of Magnesia) 30 ml PO DAILY PRN PRN Reason: Constipation Metoprolol Tartrate (Lopressor (Beta Sujatha)) 50 mg PO BID [facility] Last Admin: 07/27/18 09:35 Dose: 50 mg Ondansetron HCl (Zofran) 4 mg IV Q8H PRN PRN PRN Reason: NAUSEA Sodium Chloride () 5 - 15 ml IV UD PRN PRN Reason: SALINE FLUSH Medical Necessity - Tobacco Use Smoking Status: Never smoker Tobacco Use: Non-smoker Assessment/Plan All Active Problems (Last Updated 07/25/18 @ 18:19 by John Hardy DO) New onset atrial fibrillation (Acute) New onset of congestive heart failure (Acute) 1. Afib with RVR new onset AFib. Now rate controlled CHADVASC score is 5 on metoprolol and therapeutic lovenox 2D echo still pending will switch from lovenox to eliquis for stroke prophylaxis TSH was WNL at 3 2. Heart failure of unknown EF BNP was elevated at 310 on admission; has no known history of heart failure. 2D echo ordered and is pending IV Lasix 40 mg twice daily. Will get cardiology consult if 2D echo is abnormal. 3. Diabetes mellitus type 2: On insulin sliding scale. Metformin held on account of heart failure. A1c is. 6.2 DVT prophylaxis: On therapeutic Lovenox for A. fib. Code Visit Inpatient E&M: 16743 Subs Hosp L3
--- NOTE | 2018-07-27 16:13 | CASEMGMT ---
SW received call from Erin at [facility] and she said they are fine taking patient back whenever she is ready. Plan: d/c back to [facility] when ready. Flori PARKER MSW
[2018-07-27 17:20] LABS: Bedside Glucose 127 mg/dL (70-110)
[2018-07-27] MEDS: Atorvastatin Calcium 40 MG Tablet PO (23:33)
[2018-07-27] MEDS: APIXABAN 2.5 MG TABLET PO (23:33)
[2018-07-28] VITALS (9 sets, daily range): BP systolic 107–116; BP diastolic 39–69; PULSE 68–83; RESP 16–18; TEMP 36.9; O2SAT 84–99
[2018-07-28] MEDS: Budesonide Respules 0.5 MG/2 ML AMPUL.NEB. INHALATION (06:34)
[2018-07-28 07:00] LABS: Absolute Lymphocyte Count 1.06 X10^3/ul (0.83-4.51); Absolute Neutrophil Count 2.6 X10^3/uL (2.0-7.7); Basophil# 0.02 X10^3/uL; Basophil% 0.4 % (0-1); Eosinophil# 0.14 X10^3/uL; Eosinophils% 3.1 % (0-5); Hematocrit 33.2 % (37-47); Hemoglobin 10.1 g/dl (12.0-15.0); Lymphocyte # 1.06 X10^3/ul (4.0); Lymphocyte % 23.7 % (19-41); Mean Corp Hgb Conc 30.4 g/gl (32-36); Mean Corpuscular Hgb 29.7 pg (27.0-32.0); Mean Corpuscular Volume 97.6 fL (81-99); Mean Platelet Vol. 11.2 fl (6.2-12.0); Monocyte# 0.64 X10^3/uL; Monocyte% 14.3 % (0-10); Neutrophil # 2.61 X10^3/uL (2.7-7.7); Neutrophil % 58.3 % (47-70); Platelet Count 156 K/mm3 (150-450); RBC Distribution Width SD 53.1 fl (35.1-43.9); White Blood Count 4.5 K/mm3 (4.4-11.0)
[2018-07-28 07:01] LABS: Bedside Glucose 131 mg/dL (70-110)
[2018-07-28 07:04] LABS: POSITIVE COUNT NO; POSITIVE DIFFERENTIAL NO; POSITIVE MORPHOLOGY NO
[2018-07-28 07:24] LABS: Anion Gap 9 (5-15); BUN 27 mg/dL (7-18); Calcium,Total 8.3 mg/dL (8.5-10.1); Chloride 104 mmol/L (98-107); Creatinine, Serum 1.08 mg/dL (0.55-1.02); EST Glomerular Filtration Rate 52 mL/min (>60); Est Glom Filt Rate - Afr Amer 63 mL/min (>60); Glucose 118 mg/dL (74-106); Potassium 3.7 mmol/L (3.5-5.1); Sodium Level 145 mmol/L (136-145)
[2018-07-28] MEDS: Metoprolol Tartrate 50 MG Tablet PO (08:26)
[2018-07-28] MEDS: APIXABAN 2.5 MG TABLET PO (08:26)
[2018-07-28] MEDS: Furosemide 40 MG/4 ML Vial IV (08:28)
--- NOTE | 2018-07-28 10:43 | PCM.TXEXTCAR ---
- Diet 07/25/18 18:52 Diet: Cardiac/Low Cholesterol Food consistency:: Regular Liquid Consistency:: Regular/Thin - Routine Orders/Code Status Enema Type: Fleetz Enema Frequency: Daily PRN Suppository Type: Dulcolax 10mg Suppository Frequency: Daily PRN O2 Frequency: PRN Keep PO Greater than or Equal to (%): 92 Code Status: DNRCC-A - Therapies Weight Bearing: Weight bearing as tolerated Physical Therapy: Eval and Treat Occupational Therapy: Eval and Treat - Allergies/Procedures Done in Hospital Allergies/Adverse Reactions: Allergies No Known Allergies Allergy (Verified 07/25/18 16:04) Procedures: 2-D Echocardiogram - Type of Care/Length of Stay Estimated LOS: More Than 30 Days Type of Care Needed: Skilled Rehab Potential: Fair Prognosis: Fair - Additional Orders/Day of Discharge Day of Discharge: 07/28/18 - Dietary and Speech Recommendations Dietitian Recommendations/Changes: Rec diet change to Cardiac/Low sodium diet w/ fluid restriction as medically indicated. - Follow Up Care Primary Care Physician: Dorina Hernandez MD [Primary Care Provider] - Please follow up with your Primary Care Physician in: one week Please Follow Up With: John Chau MD When: one week to establish cardiology care
--- NOTE | 2018-07-28 10:46 | PCM.DC.SUM ---
Discharge Date and Diagnosis - Problem List Patient Problems: Active and Suspected Problems (Last Updated 07/25/18 @ 18:19 by John Hardy DO) New onset atrial fibrillation (Acute) New onset of congestive heart failure (Acute) Date of Admission: 07/25/18 Date of Discharge: 07/28/18 - Primary Discharge Diagnosis Active and Suspected Problems (Last Updated 07/25/18 @ 18:19 by John Hardy DO) New onset atrial fibrillation (Acute) New onset of acute heart failure with preserved EF. Hospital Course and Treatment Imaging Results: Diagnostic Data Chest X-Ray 07/25/18 16:31 IMPRESSION: 1. Vascular congestion with interstitial thickening suggesting fluid overload/CHF. No sizable pleural effusion. 2. No airspace consolidation. Electronically Signed: Obed Curiel MD at 17:23 EST , Service support , Operations: None Procedures: 2-D Echocardiogram Summary of Care Provided: The patient is a 83 year old F with a past medical history of diabetes who was admitted from her assisted living facility with a complaint of shortness of breath on exertion and edema of her lower extremities for the past few months and worsened just a couple of days before admission. In the ED, she was found to be in A. fib with RVR and BNP was also elevated in the 300s. She was therefore admitted and managed for new onset A. fib with RVR and acute heart failure of unknown EF. She was started on IV Lasix and received oral metoprolol. Heart rate control significantly improved and became rate and rhythm controlled. TSH checked was within normal limits. Troponins x3 were negative. 2D echo done showed EF of 50% in stage III diastolic dysfunction as well as mild 1+ mitral valve insufficiency. Patient remained stable and was started on p.o. Eliquis. She did qualify for home oxygen as her saturation on room air with mild exertion was 84%. She is to follow-up with her primary care doctor and was also referred to a concrete bucket unloader to establish relationship for management for for A. fib and heart failure. Patient seen and examined prior to discharge. She had no complaints and felt well. She was eager to go back to assisted living facility. Review of systems otherwise negative. Labs and vitals reviewed. Home medications reviewed and reconciled. o/e: Vital Signs Height 5 ft 6 in Weight: 286 lb 2.56 oz Weight in Pounds 286.2 lbs Pulse Ox [AMBULATION with 96 Oxygen] Pulse Ox [AMBULATING on Room 84 Air] Pulse Ox [At REST on Room Air] 91 Pulse Ox 99 Temperature 98.5 F Pulse Rate 75 Respiratory Rate 16 Blood Pressure 116/69 Blood Pressure Position Supine [] General: Alert, Oriented x3, Cooperative, No apparent distress HEENT: Atraumatic, PERRLA, EOMI, Normocephalic Oral: Moist Mucosa Neck: Supple, No JVD, Negative Carotid Bruits Lungs: Clear to auscultation, Normal air movement, No rhonchi, No wheeze, No rales Cardiovascular: Normal S1, Normal S2, Irregular Rate Abdomen: Bowel Sounds Present, Soft, Non Tender, Non-Distended, No Hepato-splenomegaly Extremities: No clubbing, No cyanosis, No edema, Capillary Refill Less than 3 Seconds Skin: No rashes, No breakdown Musculoskeletal: No Tenderness to Palpation of Joints or Extremities Lymphatic: No Cervical, Supraclavicular, or Inguinal Adenopathy Neurological: Cranial nerves II-XII grossly intact, Neuro grossly intact, Motor Exam 5/5 strength throughout Psych/Mental Status: Normal Affect, Appropriate, Alert and oriented to time, place, person, mood and affect She was discharged with a prescription for p.o. Eliquis 2.5 mg twice daily, p.o. metoprolol 50 mg twice daily and lisinopril 2.5 mg daily. Rest of management as above. Patient Problems: Active and Suspected Problems (Last Updated 07/25/18 @ 18:19 by John Hardy DO) New onset atrial fibrillation (Acute) New onset of congestive heart failure (Acute) - Physical Exam Vital Signs Temp Pulse Resp BP Pulse Ox 98.5 F 71 16 107/39 L 94 07/28/18 08:20 07/28/18 08:26 07/28/18 08:20 07/28/18 08:20 07/28/18 08:20 Oxygen Flow Rate (L/min) 2 Oxygen Delivery Method Room Air Weight: 286 lb 2.56 oz Body Mass Index (BMI) 49.1 Intake and Output for Last 24 Hours 07/26/18 07/27/18 07/28/18 23:59 23:59 23:59 Intake Total 450 / 450 Output Total 2550 / 2550 450 / 450 Balance -2100 / -2100 -450 / -450 Laboratory Tests Past 24 Hrs 07/28/18 07/28/18 06:05 06:05 WBC 4.5 RBC 3.40 L Hgb 10.1 L Hct 33.2 L MCV 97.6 MCH 29.7 MCHC 30.4 L RDW 15.0 H RDW Differential 53.1 H Plt Count 156 MPV 11.2 Immature Gran % (Auto) 0.200 Neut % (Auto) 58.3 Lymph % (Auto) 23.7 [place] % (Auto) 14.3 H Eos % (Auto) 3.1 Baso % (Auto) 0.4 Absolute Neuts (auto) 2.6 Absolute Lymphs (auto) 1.06 Total Counted Not Reportable Sodium 145 Potassium 3.7 Chloride 104 Carbon Dioxide 32.0 Anion Gap 9 BUN 27 H Creatinine 1.08 H Estim Creat Clear Calc 37.60 Est GFR (MDRD) Af Amer 63 Est GFR (MDRD) Non-Af 52 L BUN/Creatinine Ratio 25.0 H Glucose 118 H Calcium 8.3 L POC Glucose 07/28/18 07/27/18 07/27/18 06:55 17:06 11:23 POC Glucose 131 H 127 H 169 H Discharge Diet: Low fat/ Low Cholesterol Weight Bearing Status: Weight bearing as tolerated Call your doctor if you observe: Shortness of breath, Increased palpitations (irregular heartbeat) Home Medications: Medications to take at Discharge Metformin HCl 500 mg PO BID 12/25/17 Acetaminophen 325 mg PO Q6H PRN PRN 07/25/18 Atorvastatin Calcium 40 mg PO DAILY 07/25/18 Fluticasone 44 Mcg [Flovent 44 Mcg] 2 puff INHALATION PRN PRN 07/25/18 Guaifenesin/Dextromethorphan [Mucinex Dm ER 600-30 mg Tablet] 2 each PO Q12H PRN PRN 07/25/18 Lasix 20 mg DAILY 07/25/18 Apixaban [Eliquis] 2.5 mg PO BID #60 tab 07/28/18 Furosemide [Lasix] 40 mg PO DAILY #30 tab 07/28/18 Lisinopril 2.5 mg PO DAILY #30 tab 07/28/18 Metoprolol Tartrate [Lopressor (beta jesica)] 50 mg PO BID #60 tab 07/28/18 Following Prescrptions Were Given to Patient: Furosemide [Lasix] 40 mg PO DAILY #30 tab Lisinopril 2.5 mg PO DAILY #30 tab Apixaban [Eliquis] 2.5 mg PO BID #60 tab Metoprolol Tartrate [Lopressor (beta jesica)] 50 mg PO BID #60 tab Primary Care Physician: Dorina Hernandez MD [Primary Care Provider] - Please follow up with your Primary Care Physician in: one week Please Follow Up With: John Chau MD When: one week to establish cardiology care Patient Instructions: Discharge Instructions for Atrial Fibrillation, Discharge Instructions for Heart Failure Disposition: Asstd Living/Non-Skill NH Minutes spent on discharge:: 45 Patient Condition:: Stable Medical Necessity - Tobacco Use Smoking Status: Never smoker Tobacco Use: Non-smoker Meaningful Use Info Meaningful Use Diagnoses (Choose all that apply): CHF - CHF JAQUAN/ARB ordered at discharge?: Yes Documented LVEF (%): 50 Code Visit Inpatient E&M: 10442 Disch Hosp
--- NOTE | 2018-07-28 10:53 | DCINST_ITS ---
- Discharge Diagnoses Current Active Problems: Current Active and Chronic Problems (Last Updated 07/25/18 @ 18:19 by John Hardy DO) New onset atrial fibrillation (Acute) New onset of congestive heart failure (Acute) You will use the following diet at home:: Cardiac Your food should be the consistency of: Regular Your liquids should be the consistency of: Regular/Thin Discharge Activity: Return to Normal Activity May resume sexual activity in: No Restrictions Weight Bearing Status: Weight bearing as tolerated Call your doctor if you observe: Increased palpitations (irregular heartbeat), - - dark or bloody stools Instructions: Discharge Instructions for Atrial Fibrillation, Discharge Instructions for Heart Failure Allergies/Adverse Reactions: Allergies No Known Allergies Allergy (Verified 07/25/18 16:04) Medications to take at Discharge Metformin HCl 500 mg PO BID 12/25/17 Acetaminophen 325 mg PO Q6H PRN PRN 07/25/18 Atorvastatin Calcium 40 mg PO DAILY 07/25/18 Fluticasone 44 Mcg [Flovent 44 Mcg] 2 puff INHALATION PRN PRN 07/25/18 Guaifenesin/Dextromethorphan [Mucinex Dm ER 600-30 mg Tablet] 2 each PO Q12H PRN PRN 07/25/18 Lasix 20 mg DAILY 07/25/18 Apixaban [Eliquis] 2.5 mg PO BID #60 tab 07/28/18 Furosemide [Lasix] 40 mg PO DAILY #30 tab 07/28/18 Metoprolol Tartrate [Lopressor (beta jesica)] 50 mg PO BID #60 tab 07/28/18 The following prescriptions were given: Furosemide [Lasix] 40 mg PO DAILY #30 tab Apixaban [Eliquis] 2.5 mg PO BID #60 tab Metoprolol Tartrate [Lopressor (beta jesica)] 50 mg PO BID #60 tab Primary Care Physician: Dorina Hernandez MD [Primary Care Provider] - Please follow up with your Primary Care Physician in: one week Test Results: Test results from this visit will be discussed in further detail at your follow- up appointment, if applicable. Please Follow Up With: John Chua MD When: one week to establish cardiology care Proposed Discharge Date: 07/28/18
--- NOTE | 2018-07-28 11:44 | CASEMGMT ---
Per Christophe SYKES, pt does qualify for home oxygen at this time. This RN CM to room to speak with pt and pt states no preference on DME company at this time. Referral faxed [facility] at this time and call to Loyad at [facility] to notify of referral, voices understanding. Yocasta SYKES CM
[2018-07-28 12:01] LABS: Bedside Glucose 128 mg/dL (70-110)
--- NOTE | 2018-07-28 12:33 | PHA.DC.MR ---
Pharmacy Service has performed discharge medication reconciliation for this patient upon transfer to [facility]. The patient's discharge medication list was reviewed for discrepancies and discrepancies were resolved. Home Medications Metformin HCl 500 mg PO BID 12/25/17 Acetaminophen 325 mg PO Q6H PRN PRN 07/25/18 Atorvastatin Calcium 40 mg PO DAILY 07/25/18 Fluticasone 44 Mcg [Flovent 44 Mcg] 2 puff INHALATION PRN PRN 07/25/18 Guaifenesin/Dextromethorphan [Mucinex Dm ER 600-30 mg Tablet] 2 each PO Q12H PRN PRN 07/25/18 Lasix 20 mg DAILY 07/25/18 Apixaban [Eliquis] 2.5 mg PO BID #60 tab 07/28/18 Furosemide [Lasix] 40 mg PO DAILY #30 tab 07/28/18 Metoprolol Tartrate [Lopressor (beta jesica)] 50 mg PO BID #60 tab 07/28/18
--- NOTE | 2018-07-28 12:40 | CASEMGMT ---
Addendum entered by Flori Calderon 07/28/18 13:42: SW notified RN, patient, and her daughter of hand picker time. Plan: d/c back to [facility] with [employer] O2. Flori PARKER SALES ADVISORY MANAGER Original Note: JEREMIAH called [facility] and let Avel[facility] know patient will be returning today. She requires O2 so RN CM is setting this up. JEREMIAH spoke with [facility] and they will hand picker patient at 3p. JEREMIAH faxed d/c instructions. Flori PARKER SALES ADVISORY MANAGER
--- NOTE | 2018-07-28 14:50 | CASEMGMT ---
Addendum entered by Torrie Gerardo 07/28/18 14:56: This RN CM received a call from Loyda at [facility] and she states that they will be over with a tank shortly. Yocasta SYKES CM Original Note: Oxygen tank is still not here at this time. This RN CM has attempted to reach [facility] several times without success for the last 30-40min. Transport from [place] was scheduled to pick pt up at 1500 but will not be able to without oxygen at this time. Jamila SW aware and placed call to pt's daughter and she will be able to pick her up later around 1700. Yocasta SYKES CM
--- NOTE | 2018-07-28 14:59 | CASEMGMT ---
Patient's O2 has not yet been delivered. SW called [facility] and canceled transport. SW called patient's daughter and she can pick patient up when she gets off work. This will be around 5p. SW let patient and RN know this information. SW apologized for the inconvenience. Plan; d/c back to [facility] with [employer] O2. Flori PARKER [facility] [employer]
== END 2018-07-28 17:33 | disposition home or self-care (01) | DRG 308 ==
LOC: ED 18:07 → PCU 18:44
PROVIDERS: Emergency Provider Emergency Medicine; Family Provider Family Medicine; PCP Family Medicine; Visit Provider Student in an Organized Health Care Education/Training Program
DX: I48.91 Unspecified atrial fibrillation (principal); I50.31 Acute diastolic (congestive) heart failure; Z68.42 Body mass index [BMI] 45.0-49.9, adult; E11.9 Type 2 diabetes mellitus without complications; Z79.84 Long term (current) use of oral hypoglycemic drugs; E66.01 Morbid (severe) obesity due to excess calories; I11.0 Hypertensive heart disease with heart failure; Z79.899 Other long term (current) drug therapy; R53.83 Other fatigue
CPT/HCPCS: 36415; 71045; 80048; 80053; 80061; 82962; 83036; 83880; 84443; 84484; 85025; 85027; 85610; 85730; 93005; 93306; 94640; 97110; 97163; 97166; 97530; 97802; 99285; J7030; Q9957; A4216; J1940

== ENCOUNTER → 2018-08-04 05:00 | Outpatient (REF) | payer MEDICARE, OTHER, SELFPAY ==
[2018-07-29 10:19] VITALS: BMI 48.6
[2018-08-04 08:28] LABS: Hematocrit 34.6 % (37-47); Hemoglobin 10.5 g/dl (12.0-15.0); Mean Corp Hgb Conc 30.3 g/gl (32-36); Mean Corpuscular Volume 98.9 fL (81-99); Mean Platelet Vol. 11.8 fl (6.2-12.0); Platelet Count 148 K/mm3 (150-450); RBC Distribution Width CV 14.4 % (11.6-14.6); RBC Distribution Width SD 50.1 fl (35.1-43.9); Scan Indicated on CBC? Y/N NO; White Blood Count 4.2 K/mm3 (4.4-11.0)
[2018-08-04 08:59] LABS: BNP,B-Type NATRIURETIC PEPTIDE 286.2 pg/mL (0-100)
== END ==
PROVIDERS: Visit Provider Family Medicine
DX: I50.9 Heart failure, unspecified (principal); R53.83 Other fatigue
CPT/HCPCS: 36415; 83880; 85027

== ENCOUNTER → 2018-08-25 05:30 | Outpatient (REF) | payer MEDICARE, OTHER, SELFPAY ==
[2018-08-18 15:17] VITALS: BMI 46.1
[2018-08-25 08:25] LABS: Absolute Lymphocyte Count 1.42 X10^3/ul (0.83-4.51); Absolute Neutrophil Count 2.4 X10^3/uL (2.0-7.7); Basophil# 0.01 X10^3/uL; Basophil% 0.2 % (0-1); Eosinophil# 0.21 X10^3/uL; Eosinophils% 4.6 % (0-5); Hematocrit 32.6 % (37-47); Hemoglobin 10.2 g/dl (12.0-15.0); Lymphocyte # 1.42 X10^3/ul (4.0); Lymphocyte % 31.3 % (19-41); Mean Corp Hgb Conc 31.3 g/gl (32-36); Mean Corpuscular Hgb 29.5 pg (27.0-32.0); Mean Corpuscular Volume 94.2 fL (81-99); Mean Platelet Vol. 11.7 fl (6.2-12.0); Monocyte# 0.54 X10^3/uL; Monocyte% 11.9 % (0-10); Neutrophil # 2.35 X10^3/uL (2.7-7.7); Neutrophil % 51.8 % (47-70); Platelet Count 142 K/mm3 (150-450); RBC Distribution Width CV 14.5 % (11.6-14.6); RBC Distribution Width SD 49.5 fl (35.1-43.9); Red Blood Count 3.46 M/mm3 (4.2-5.4); White Blood Count 4.5 K/mm3 (4.4-11.0)
[2018-08-25 08:27] LABS: POSITIVE COUNT NO; POSITIVE DIFFERENTIAL NO; POSITIVE MORPHOLOGY NO
[2018-08-25 08:46] LABS: Anion Gap 4 (5-15); BUN 27 mg/dL (7-18); BUN/Creat Ratio 22.5 RATIO (10-20); Calcium,Total 8.8 mg/dL (8.5-10.1); Chloride 101 mmol/L (98-107); EST Glomerular Filtration Rate 46 mL/min (>60); Est Glom Filt Rate - Afr Amer 55 mL/min (>60); Glucose 106 mg/dL (74-106); Potassium 3.8 mmol/L (3.5-5.1); Sodium Level 138 mmol/L (136-145)
[2018-08-25 08:52] LABS: BNP,B-Type NATRIURETIC PEPTIDE 248.5 pg/mL (0-100)
== END ==
PROVIDERS: Visit Provider Family Medicine
DX: I50.9 Heart failure, unspecified (principal)
CPT/HCPCS: 36415; 80048; 83880; 85025

== ENCOUNTER → 2019-01-06 05:00 | Outpatient (REF) | payer MEDICARE, OTHER, SELFPAY ==
[2018-11-26 15:29] VITALS: BMI 40.1
[2019-01-06 09:01] LABS: Hemoglobin 11.3 g/dL (12.0-15.0); Mean Corp Hgb Conc 33.2 g/dL (32-36); Mean Corpuscular Hgb 31.7 pg (27.0-32.0); Mean Corpuscular Volume 95.5 fL (81-99); Platelet Count 162 K/mm3 (150-450); RBC Distribution Width CV 13.4 % (11.6-14.6); RBC Distribution Width SD 47.5 fl (35.1-43.9); Red Blood Count 3.56 M/mm3 (4.2-5.4); White Blood Count 6.9 K/mm3 (4.4-11.0)
[2019-01-06 09:19] LABS: AST(SGOT) 18 U/L (15-37); Alanine Aminotransfer ALT/SGPT 20 U/L (13-56); Anion Gap 7 (5-15); BUN 40 mg/dL (7-18); BUN/Creat Ratio 26.7 RATIO (10-20); Chloride 103 mmol/L (98-107); Cholesterol 143 mg/dL (200); EST Glomerular Filtration Rate 35 mL/min (>60); Est Glom Filt Rate - Afr Amer 43 mL/min (>60); Glucose 92 mg/dL (74-106); High Density Lipoprotein 60 mg/dL; Potassium 4.1 mmol/L (3.5-5.1); Sodium Level 143 mmol/L (136-145); T4 Total, Thyroxin 9.9 ug/dL (4.8-13.9); Thyroid Stim Hormone (TSH) 1.53 uIU/mL (0.358-3.74); Triglycerides 62 mg/dL; Very Low Density Lipoprotein 12 mg/dL (5-40)
[2019-01-06 09:55] LABS: Hemoglobin A1c 6.5 % (4.2-6.3)
== END ==
PROVIDERS: Visit Provider Family Medicine
DX: D64.9 Anemia, unspecified (principal); I11.0 Hypertensive heart disease with heart failure; I50.9 Heart failure, unspecified; E11.9 Type 2 diabetes mellitus without complications; E03.9 Hypothyroidism, unspecified
CPT/HCPCS: 36415; 80048; 80061; 83036; 84436; 84443; 84450; 84460; 85027

== ENCOUNTER → 2019-02-17 05:00 | Outpatient (REF) | payer MEDICARE, OTHER, SELFPAY ==
[2018-11-26 15:29] VITALS: BMI 40.1
[2019-02-17 08:37] LABS: Absolute Lymphocyte Count 1.44 X10^3/uL (0.83-4.51); Absolute Neutrophil Count 3.5 X10^3/uL (2.0-7.7); Basophil# 0.02 X10^3/uL; Basophil% 0.4 % (0-1); Eosinophil# 0.23 X10^3/uL; Hematocrit 33.4 % (37-47); Hemoglobin 11.1 g/dL (12.0-15.0); Lymphocyte # 1.44 X10^3/ul (4.0); Lymphocyte % 25.2 % (19-41); Mean Corp Hgb Conc 33.2 g/dL (32-36); Mean Corpuscular Hgb 32.1 pg (27.0-32.0); Mean Corpuscular Volume 96.5 fL (81-99); Mean Platelet Vol. 12.3 fl (6.2-12.0); Monocyte# 0.54 X10^3/uL; Monocyte% 9.5 % (0-10); NRBC Flagged by Analyzer 0 % (0-5); Neutrophil # 3.46 X10^3/uL (2.7-7.7); Neutrophil % 60.5 % (47-70); Platelet Count 157 K/mm3 (150-450); RBC Distribution Width CV 12.6 % (11.6-14.6); RBC Distribution Width SD 44.1 fl (35.1-43.9); Red Blood Count 3.46 M/mm3 (4.2-5.4); White Blood Count 5.7 K/mm3 (4.4-11.0)
[2019-02-17 08:52] LABS: AST(SGOT) 18 U/L (15-37); Alanine Aminotransfer ALT/SGPT 21 U/L (13-56); Albumin, Serum 3.4 g/dL (3.2-5.0); Alkaline Phosphatase 131 U/L (45-117); Anion Gap 11 (5-15); BUN 46 mg/dL (7-18); BUN/Creat Ratio 24.2 RATIO (10-20); Calcium,Total 8.9 mg/dL (8.5-10.1); Chloride 101 mmol/L (98-107); EST Glomerular Filtration Rate 27 mL/min (>60); Est Glom Filt Rate - Afr Amer 33 mL/min (>60); Globulin 3.5 g/dL (2.2-4.2); Glucose 180 mg/dL (74-106); Potassium 4.2 mmol/L (3.5-5.1); Protein, Total 6.9 g/dL (6.4-8.2); Sodium Level 142 mmol/L (136-145); Thyroid Stim Hormone (TSH) 2.04 uIU/mL (0.358-3.74)
[2019-02-17 09:02] LABS: Hemoglobin A1c 6.4 % (4.2-6.3)
== END ==
PROVIDERS: Visit Provider Family Medicine
DX: I50.9 Heart failure, unspecified (principal); E03.9 Hypothyroidism, unspecified; E11.9 Type 2 diabetes mellitus without complications; R63.5 Abnormal weight gain
CPT/HCPCS: 36415; 80053; 83036; 84443; 85025

== ENCOUNTER → 2019-02-24 05:00 | Outpatient (REF) | payer MEDICARE, OTHER, SELFPAY ==
[2018-11-26 15:29] VITALS: BMI 40.1
[2019-02-24 08:12] LABS: Anion Gap 9 (5-15); BUN 43 mg/dL (7-18); Calcium,Total 9.2 mg/dL (8.5-10.1); Chloride 102 mmol/L (98-107); Creatinine, Serum 1.79 mg/dL (0.55-1.02); EST Glomerular Filtration Rate 29 mL/min (>60); Est Glom Filt Rate - Afr Amer 35 mL/min (>60); Glucose 132 mg/dL (74-106); Potassium 4.3 mmol/L (3.5-5.1); Sodium Level 140 mmol/L (136-145)
== END ==
PROVIDERS: Visit Provider Family Medicine
DX: I10 Essential (primary) hypertension (principal)
CPT/HCPCS: 36415; 80048

== ENCOUNTER → 2019-06-03 23:30 | Outpatient (REF) | payer MEDICARE, OTHER, SELFPAY ==
[2018-11-26 15:29] VITALS: BMI 40.1
[2019-06-04 07:54] LABS: Color, Urine Yellow (Yellow); Glucose, Dipstick Normal (Normal); Ketone-Dipstick Negative (Negative); Leukocyte Esterase-Dipstick 500 /ul (Negative); Nitrite-Dipstick Negative (Negative); Occult Blood-Urine 10 /ul (Negative); Protein-Dipstick 15 mg/dl (Negative); Urine Bilirubin Dipstick Negative (Negative); Urine Clarity Clear (Clear); Urine Urobilinogen Normal (Normal)
== END ==
PROVIDERS: PCP Family Medicine; Visit Provider Family Medicine
DX: N39.0 Urinary tract infection, site not specified (principal); R29.6 Repeated falls
CPT/HCPCS: 81002; 87077; 87086; 87088; 87186

== ENCOUNTER → 2019-06-18 06:20 | Outpatient (REF) | payer MEDICARE, OTHER, SELFPAY ==
[2019-06-17 15:17] VITALS: BMI 37.4
[2019-06-18 07:57] LABS: Absolute Lymphocyte Count 1.23 X10^3/uL (0.83-4.51); Absolute Neutrophil Count 4.1 X10^3/uL (2.0-7.7); Basophil# 0.02 X10^3/uL; Basophil% 0.3 % (0-1); Eosinophil# 0.16 X10^3/uL; Eosinophils% 2.6 % (0-5); Hematocrit 28.9 % (37-47); Hemoglobin 9.5 g/dL (12.0-15.0); Lymphocyte # 1.23 X10^3/ul (4.0); Lymphocyte % 20.1 % (19-41); Mean Corp Hgb Conc 32.9 g/dL (32-36); Mean Corpuscular Hgb 31.6 pg (27.0-32.0); Mean Platelet Vol. 12.2 fl (6.2-12.0); Monocyte# 0.55 X10^3/uL; NRBC Flagged by Analyzer 0 % (0-5); Neutrophil # 4.13 X10^3/uL (2.7-7.7); Neutrophil % 67.7 % (47-70); Platelet Count 160 K/mm3 (150-450); RBC Distribution Width CV 13.3 % (11.6-14.6); RBC Distribution Width SD 46.2 fl (35.1-43.9); Red Blood Count 3.01 M/mm3 (4.2-5.4); White Blood Count 6.1 K/mm3 (4.4-11.0)
[2019-06-18 08:14] LABS: BUN 37 mg/dL (7-18); Creatinine, Serum 2.19 mg/dL (0.55-1.02); Glucose 108 mg/dL (74-106)
[2019-06-18 08:15] LABS: AST(SGOT) 16 U/L (15-37); Alanine Aminotransfer ALT/SGPT 21 U/L (13-56); Albumin, Serum 3.4 g/dL (3.2-5.0); Alkaline Phosphatase 107 U/L (45-117); Anion Gap 5 (5-15); BUN/Creat Ratio 16.9 RATIO (10-20); Calcium,Total 9.1 mg/dL (8.5-10.1); Chloride 107 mmol/L (98-107); EST Glomerular Filtration Rate 23 mL/min (>60); Est Glom Filt Rate - Afr Amer 28 mL/min (>60); Globulin 3.5 g/dL (2.2-4.2); Potassium 3.8 mmol/L (3.5-5.1); Protein, Total 6.9 g/dL (6.4-8.2); Sodium Level 142 mmol/L (136-145)
[2019-06-18 08:26] LABS: Vitamin B12 270 pg/mL (211-911)
== END ==
PROVIDERS: PCP Family Medicine; Visit Provider Family Medicine
DX: I10 Essential (primary) hypertension (principal); F41.9 Anxiety disorder, unspecified
CPT/HCPCS: 36415; 80053; 82607; 82746; 85025

== ENCOUNTER → 2019-07-07 05:00 | Outpatient (REF) | payer MEDICARE, OTHER, SELFPAY ==
[2019-06-17 15:17] VITALS: BMI 37.4
[2019-07-07 08:47] LABS: Hemoglobin A1c 5.5 % (4.2-6.3)
[2019-07-07 08:52] LABS: Anion Gap 8 (5-15); BUN 29 mg/dL (7-18); BUN/Creat Ratio 12.9 RATIO (10-20); Calcium,Total 9.2 mg/dL (8.5-10.1); Chloride 103 mmol/L (98-107); Creatinine, Serum 2.25 mg/dL (0.55-1.02); EST Glomerular Filtration Rate 22 mL/min (>60); Est Glom Filt Rate - Afr Amer 27 mL/min (>60); Glucose 211 mg/dL (74-106); Potassium 3.8 mmol/L (3.5-5.1); Sodium Level 139 mmol/L (136-145)
== END ==
PROVIDERS: PCP Family Medicine; Visit Provider Family Medicine
DX: E11.9 Type 2 diabetes mellitus without complications (principal); I11.0 Hypertensive heart disease with heart failure; I50.9 Heart failure, unspecified
CPT/HCPCS: 36415; 80048; 83036

== ENCOUNTER → 2019-11-04 18:55 | Outpatient (REF) | payer MEDICARE, OTHER, SELFPAY ==
[2019-06-17 15:17] VITALS: BMI 37.4
[2019-11-05 11:13] LABS: Bacteria 0 SEEN /hpf (None Seen); Mucous, Urine 0 SEEN /hpf (<or=2+); Red Blood Cells-Urine 0 SEEN /hpf (0-5)
[2019-11-05 11:37] LABS: Color, Urine Yellow (Yellow); Glucose, Dipstick Normal (Normal); Ketone-Dipstick Negative (Negative); Leukocyte Esterase-Dipstick 25 /ul (Negative); Nitrite-Dipstick Positive (Negative); Occult Blood-Urine Negative /ul (Negative); Protein-Dipstick Negative (Negative); Urine Bilirubin Dipstick Negative (Negative); Urine Clarity Clear (Clear); Urine Urobilinogen Normal (Normal)
[2019-11-05 11:44] LABS: Squamous Epithelial Cells - UA 0-5 SEEN /hpf (5-10); White Blood Cells 0-5 SEEN /hpf (0-5)
== END ==
PROVIDERS: PCP Family Medicine; Visit Provider Family Medicine
DX: N39.0 Urinary tract infection, site not specified (principal)
CPT/HCPCS: 81001; 87077; 87086; 87088; 87186

== ENCOUNTER → 2020-07-14 05:00 | Outpatient (REF) | payer MEDICARE, OTHER, SELFPAY ==
[2019-06-17 15:17] VITALS: BMI 37.4
[2020-07-14 07:45] LABS: Anion Gap 4 (5-15); BUN 35 mg/dL (7-18); BUN/Creat Ratio 20.6 RATIO (10-20); Calcium,Total 8.9 mg/dL (8.5-10.1); Chloride 107 mmol/L (98-107); EST Glomerular Filtration Rate 30 mL/min (>60); Est Glom Filt Rate - Afr Amer 37 mL/min (>60); Glucose 106 mg/dL (74-106); Potassium 4.5 mmol/L (3.5-5.1); Sodium Level 140 mmol/L (136-145); T4 Total, Thyroxin 7.2 ug/dL (4.8-13.9); Thyroid Stim Hormone (TSH) 2.77 uIU/mL (0.358-3.74)
== END ==
PROVIDERS: PCP Family Medicine; Visit Provider Family Medicine
DX: I10 Essential (primary) hypertension (principal); E03.9 Hypothyroidism, unspecified; Z79.899 Other long term (current) drug therapy
CPT/HCPCS: 36415; 80048; 84436; 84443

== ENCOUNTER → 2020-08-22 20:30 | Outpatient (REF) | payer MEDICARE, OTHER, SELFPAY ==
[2019-06-17 15:17] VITALS: BMI 37.4
[2020-08-23 08:07] LABS: Bacteria 0 SEEN /hpf (None Seen); Mucous, Urine 0 SEEN /hpf (<or=2+); Red Blood Cells-Urine 0 SEEN /hpf (0-5); White Blood Cells 0 SEEN /hpf (0-5)
[2020-08-23 08:14] LABS: Color, Urine Straw (Yellow); Glucose, Dipstick Normal (Normal); Ketone-Dipstick Negative (Negative); Leukocyte Esterase-Dipstick Negative /ul (Negative); Nitrite-Dipstick Negative (Negative); Occult Blood-Urine Negative /ul (Negative); Protein-Dipstick Negative (Negative); Urine Bilirubin Dipstick Negative (Negative); Urine Clarity Sl. Cloudy (Clear); Urine Urobilinogen Normal (Normal)
[2020-08-23 08:20] LABS: Squamous Epithelial Cells - UA 0-5 SEEN /hpf (5-10)
== END ==
PROVIDERS: PCP Family Medicine; Visit Provider Family Medicine
DX: N39.0 Urinary tract infection, site not specified (principal); R41.0 Disorientation, unspecified
CPT/HCPCS: 81001; 87086; 87088

== ENCOUNTER 2021-04-13 09:51 | Inpatient (IN) | payer MEDICARE, OTHER, SELFPAY ==
[2021-04-13] VITALS (11 sets, daily range): BP systolic 111–162; BP diastolic 51–100; PULSE 52–62; RESP 5–20; TEMP 36.6–37.7; O2SAT 87–99; BMI 36.7; BMI 35.6
[2021-04-13 11:13] LABS: Absolute Neutrophil Count 2.2 X10^3/uL (2.0-7.7); Basophil# 0.02 X10^3/uL; Basophil% 0.6 % (0-1); Eosinophil# 0.02 X10^3/uL; Eosinophils% 0.6 % (0-5); Hematocrit 31.1 % (37-47); Hemoglobin 10.4 g/dL (12.0-15.0); Lymphocyte % 14.7 % (19-41); Mean Corp Hgb Conc 33.4 g/dL (32-36); Mean Corpuscular Hgb 31.6 pg (27.0-32.0); Mean Corpuscular Volume 94.5 fL (81-99); Mean Platelet Vol. 10.8 fl (6.2-12.0); Monocyte# 0.63 X10^3/uL; Monocyte% 18.6 % (0-10); NRBC Flagged by Analyzer 0 % (0-5); Neutrophil # 2.21 X10^3/uL (2.7-7.7); Neutrophil % 65.2 % (47-70); POSITIVE DIFFERENTIAL YES; Platelet Count 157 K/mm3 (150-450); RBC Distribution Width SD 44.9 fl (35.1-43.9); Red Blood Count 3.29 M/mm3 (4.2-5.4); White Blood Count 3.4 K/mm3 (4.4-11.0)
[2021-04-13 11:17] LABS: Differential Indicated SCAN CRITERIA MET
--- NOTE | 2021-04-13 11:18 | RAD_ITS ---
STUDY: X-RAY CHEST REASON FOR EXAM: Female, 85 years old. Cough TECHNIQUE: Single AP portable view of the chest. COMPARISON: None. FINDINGS: The lungs are clear and expanded. There is no demonstrated pleural abnormality. There is mild cardiac enlargement. Normal mediastinum and rebekah. Normal visualized pulmonary arteries. Normal visualized aortic arch and descending thoracic aorta. There is demineralization of the osseous structures. Normal visualized ribs, clavicles, and shoulders. There is no demonstrated abnormality of the visualized soft tissue structures of the upper abdomen. RAD/Chest 1 View (Portable) IMPRESSION: Degenerative changes, as described above. No demonstrated acute cardiopulmonary process. Electronically Signed: Vinny Yuan MD at 12:10 EST , Service support ,
[2021-04-13 11:31] LABS: ALB/GLOB Ratio 0.7 RATIO (0.9-2.4); AST(SGOT) 16 U/L (15-37); Alanine Aminotransfer ALT/SGPT 12 U/L (13-56); Albumin, Serum 2.9 g/dL (3.2-5.0); Alkaline Phosphatase 108 U/L (45-117); Anion Gap 6 (5-15); BUN 27 mg/dL (7-18); BUN/Creat Ratio 15.2 RATIO (10-20); Calcium,Total 8.3 mg/dL (8.5-10.1); Chloride 101 mmol/L (98-107); Creatinine, Serum 1.78 mg/dL (0.55-1.02); EST Glomerular Filtration Rate 29 mL/min (>60); Est Glom Filt Rate - Afr Amer 35 mL/min (>60); Estimated Creatinine Clearance 24.59 ml/min; Globulin 4.1 g/dL (2.2-4.2); Glucose 136 mg/dL (74-106); Potassium 4.2 mmol/L (3.5-5.1); Sodium Level 137 mmol/L (136-145); Troponin-I HS 49 pg/mL (3.0-54.0)
[2021-04-13 11:35] LABS: Lactic Acid 0.4 mmol/L (0.4-1.9)
--- NOTE | 2021-04-13 11:56 | EDS_ITS ---
HPI History of Present Illness Chief Complaint: Cough Informant: patient, family and EMS Narrative Narrative: 85-year-old female presenting to the emergency room with a chief complaint of COVID-19. She is a resident at [facility]. Reportedly there was a positive COVID-19 case there on Friday and she tested positive today. detention states that she was very weak and did not want to get out of bed. The patient states that she feels fine. There was not a lot of information about this acute presentation that was sent to us. I did speak with the granddaughter/daughter who provided me some information. She tells me that she is in hospice but not in hospice and that hospice comes and does some nursing care during the week. Nursing notes the patient is 87% on room air. She does not wear oxygen at home. [facility] Medical History (Updated 04/13/21 @ 12:[address] Zenon Heard DO) Acute on chronic diastolic (congestive) heart failure Diastolic dysfunction DM2 (diabetes mellitus, type 2) Hypercholesterolemia New onset atrial fibrillation Persistent atrial fibrillation Home Medications metformin 500 mg PO BID 12/25/17 [History Last Taken 07/25/18] acetaminophen 325 mg PO Q6H PRN PRN 07/25/18 [History Last Taken Unknown] atorvastatin 40 mg PO DAILY 07/25/18 [History Last Taken 07/24/18] fluticasone propionate 2 puff INHALATION PRN PRN 07/25/18 [History Last Taken Unknown] ferrous sulfate 325 mg (65 mg iron) tablet 325 mg PO DAILY tab 08/18/18 [History Last Taken Unknown] levothyroxine 50 mcg capsule 50 mcg PO DAILY 08/18/18 [History Last Taken Unknown] apixaban 2.5 mg tablet 2.5 mg PO BID #90 tab 06/17/19 [Rx Last Taken Unknown] furosemide 40 mg tablet 40 mg PO DAILY tab 06/17/19 [History Last Taken Unknown] metoprolol tartrate 25 mg tablet 25 mg PO BID 06/17/19 [History Last Taken Unknown] Allergy/AdvReac Type Severity Reaction Status Date / Time No Known Allergies Allergy Verified 06/17/19 15:17 Family History Mother Heart disease Surgical History H/O: hysterectomy Social History Smoking Status: Never smoker alcohol intake: current alcohol intake frequency: holidays/special occasions only caffeine: No ROS ROS ED Constitutional Constitutional ED: Reports other Details: Generalized weakness ; Denies chills, fever(s) or weight loss Eyes Eyes: Denies change in vision or diplopia ENT ENT ED: Denies ear pain, rhinorrhea or sore throat Cardiovascular Cardiovascular: Denies chest pain, orthopnea, palpitations or racing heartbeat Respiratory/Chest Respiratory/Chest: Reports cough; Denies dyspnea or orthopnea Gastrointestinal Gastrointestinal: Denies abdominal pain, diarrhea, nausea or vomiting Genitourinary Genitourinary ED: Denies dysuria, hematuria or urinary frequency Musculoskeletal Musculoskeletal: Denies arthralgias or myalgias Integumentary Denies abscess or rash Neurologic Neurologic: Denies headache(s) or weakness Psychiatric Psychiatric: Denies anxiety, depression, suicidal ideation or suicidal thoughts Endocrine Endocrinology: Denies polydipsia, polyphagia or polyuria Allergic/Immunologic Allergic/Immunologic ED: Denies mouth swelling, tongue swelling or urticaria EXAM Physical Exam Const Vital Signs: 04/13/21 09:54 04/13/21 09:57 04/13/21 09:58 Temperature 99.9 F H 99.9 F H Temperature Source Temporal Temporal Pulse Rate 54 L 54 L Respiratory Rate 20 H 20 H 18 Respiratory Effort Short of Breath Respiratory Pattern Normal Blood Pressure 130/51 H 130/51 H Blood Pressure Mean 77 77 Pulse Ox 87 99 99 Oxygen Delivery Method Room Air Nasal Cannula Nasal Cannula Oxygen Flow Rate (L/min) 2 2 04/13/21 11:18 Temperature Temperature Source Pulse Rate Respiratory Rate Respiratory Effort Respiratory Pattern Blood Pressure Blood Pressure Mean Pulse Ox 96 Oxygen Delivery Method Nasal Cannula Oxygen Flow Rate (L/min) 2 Positive well nourished, well developed and obese General Appearance ED: well developed Nutritional Appearance: obese HEENT Reports normocephalic, head/scalp atraumatic, TM's clear and moist mucous membranes Negative for atraumatic Tympanic Membrane ED: Yes TM's clear Eyes PERRL and EOMs intact bilaterally Neck no lymphadenopathy, supple and no JVD Resp normal respiratory effort and clear to auscultation bilaterally Cardio regular rate, regular rhythm and no murmurs GI normal to inspection, nondistended, normoactive bowel sounds and non-tender Palpation: soft Back/Spine no CVA tenderness and normal ROM Extremity normal to inspection General Extremety ED: Negative for edema General Extremity: Negative for edema Neuro CN's II-XII intact bilaterally Sensorium / Orientation: alert, oriented to person and oriented to place Motor Exam: strength 5/5 throughout Psych mental status grossly normal Mood & Affect: Negative for depressed or tearful Skin no rashes or lesions noted and no wounds MDM MDM MDM Narrative Medical decision making narrative: Patient is Covid positive. Platelet count of 157 white count 3.4. Hemoglobin 10.4. Lactic acid is normal. Troponin is 49. Creatinine 1.78 with an estimated GFR 29. No interpretation of the chest x-ray is multifocal areas of inflammation. She received a dose of Decadron and supplemental oxygen. I will speak with the hospitalist regarding admission. Lab Data Attestation: I reviewed the patient's lab results. Labs: Laboratory Results - last 24 hr 04/13/21 04/13/21 04/13/21 10:50 10:50 10:50 WBC 3.4 L RBC 3.29 L Hgb 10.4 L Hct 31.1 L MCV 94.5 MCH 31.6 MCHC 33.4 RDW Std Deviation 44.9 H RDW Coeff of Sosa 13.0 Plt Count 157 MPV 10.8 Immature Gran % (Auto) 0.300 Neut % (Auto) 65.2 Lymph % (Auto) 14.7 L [place] % (Auto) 18.6 H Eos % (Auto) 0.6 Baso % (Auto) 0.6 Absolute Neuts (auto) 2.2 Absolute Lymphs (auto) 0.50 L Nucleated RBC % 0 Differential Comment COMMENT Diff Path Review May foll Sodium 137 Potassium 4.2 Chloride 101 Carbon Dioxide 30.0 Anion Gap 6 BUN 27 H Creatinine 1.78 H Estim Creat Clear Calc 24.59 Est GFR (MDRD) Af Amer 35 L Est GFR (MDRD) Non-Af 29 L BUN/Creatinine Ratio 15.2 Glucose 136 H Lactic Acid 0.4 Calcium 8.3 L Total Bilirubin 0.40 AST 16 ALT 12 L Alkaline Phosphatase 108 Troponin I High Sens 49 Total Protein 7.0 Albumin 2.9 L Globulin 4.1 Albumin/Globulin Ratio 0.7 L Discharge Plan Triage Chief Complaint: Cough ED Provider: Zenon Heard Dx/Rx/DC Orders Clinical Impression: COVID-19, Acute hypoxemic respiratory failure Prescriptions: No Action ferrous sulfate 325 mg (65 mg iron) tablet 325 mg PO DAILY RF: 0 levothyroxine 50 mcg capsule 50 mcg capsule 50 mcg PO DAILY RF: 0 furosemide 40 mg tablet 40 mg PO DAILY RF: 0 metoprolol tartrate 25 mg tablet 25 mg PO BID RF: 0 apixaban 2.5 mg tablet 2.5 mg PO BID Qty: 90 RF: 3 metformin 500 MG tablet 500 mg PO BID RF: 0 atorvastatin 40 MG tablet 40 mg PO DAILY RF: 0 fluticasone propionate 1 INHALER inhaler 2 puff Inhalation PRN PRN (Reason: Nasal Congestion) RF: 0 acetaminophen 325 MG tablet 325 mg PO Q6H PRN PRN (Reason: Pain) RF: 0 Primary Care Provider: Dorina Hernandez Referrals: Dorina Hernandez MD [Primary Care Provider] - Disposition Disposition: Acute Care Hospital [facility]
[2021-04-13] MEDS: dexAMETHasone 4 MG Tablet 6 MG PO (12:43)
--- NOTE | 2021-04-13 13:19 | PCS.PANDOC ---
PANDEMIC DOCUMENTATION INITIATED: Date: 04/13/2021 Time: 1300
--- NOTE | 2021-04-13 13:29 | PCM.HP.STD ---
HPI - General General Date of Admission: 04/13/21 HPI Narrative DANIELLE XAVIER, is a 85 F who presented to the emergency department at [facility] on 04/13/2021 with a chief complaint of a cough. The patient is a resident at [facility] and evidently there was a positive case there on Friday. The patient was tested today and tested positive for COVID-19. It is unclear whether they tested her because she was having symptoms of cough or whether they were gallardo testing their residence. The patient is unable to give me any information and there is no family at the bedside therefore all of my information is coming from the emergency department physician. Evidently the granddaughter states that the patient was in hospice but not enrolled in hospice. It sounds as if she was having some help at baseline with nursing care but is not actually enrolled in hospice at this time. Her pulse oximetry on room air was 87%. She is not O2 dependent at home. I am unable to ascertain whether or not she is having any other symptoms associated with her Covid infection. I suspect she was vaccinated as she does live in assisted living facility although I have no confirmation of this. Her vital signs in the emergency department showed mild temperature elevation but no actual fever with a temperature of 99.9. She was mildly bradycardic with heart rates in the mid 50s she was overall normotensive with mild tachypnea having respiratory rates from 18-20 and as noted above her oxygen via pulse ox was 87% on room air and improved to 99% on 2 L nasal cannula. Her CBC shows a leukopenia with a lymphopenia consistent with COVID-19 infection. She also has a mild chronic normocytic anemia which is stable. Her CMP shows normal electrolytes and elevated BUN and creatinine at 27 and 1.78 respectively which appear to be her baseline when compared to previous data. Her LFTs are within normal limits. Her lactic acid is normal. A troponin was obtained and was within normal limits at 49. Her EKG shows chronic atrial fibrillation without ST-T wave changes. Chest x-ray was obtained and is overall unimpressive other than some mild cardiomegaly and possible small scattered bilateral infiltrates upon my review but this was not called on the official read. She was given Decadron in the emergency department and request for admission was made. [facility] Medical History Chronic atrial fibrillation Diastolic dysfunction DM2 (diabetes mellitus, type 2) Hyperlipidemia Hypothyroidism Normocytic anemia Stage 3b chronic kidney disease Medical History unable to obtain Home Medications metformin 500 mg PO BID 12/25/17 [History Last Taken 07/25/18] acetaminophen 325 mg PO Q6H PRN PRN 07/25/18 [History Last Taken Unknown] atorvastatin 40 mg PO DAILY 07/25/18 [History Last Taken 07/24/18] fluticasone propionate 2 puff INHALATION PRN PRN 07/25/18 [History Last Taken Unknown] ferrous sulfate 325 mg (65 mg iron) tablet 325 mg PO DAILY tab 08/18/18 [History Last Taken Unknown] levothyroxine 50 mcg capsule 50 mcg PO DAILY 08/18/18 [History Last Taken Unknown] apixaban 2.5 mg tablet 2.5 mg PO BID #90 tab 06/17/19 [Rx Last Taken Unknown] furosemide 40 mg tablet 40 mg PO DAILY tab 06/17/19 [History Last Taken Unknown] metoprolol tartrate 25 mg tablet 25 mg PO BID 06/17/19 [History Last Taken Unknown] Allergy/AdvReac Type Severity Reaction Status Date / Time No Known Allergies Allergy Verified 06/17/19 15:17 Family History Mother Heart disease Surgical History H/O: hysterectomy Social History Smoking Status: Never smoker alcohol intake: current alcohol intake frequency: holidays/special occasions only caffeine: No ROS Review of Systems ROS Unobtainable: due to mental status Vital Signs Vital Signs Vital Signs: 04/13/21 09:54 04/13/21 09:57 04/13/21 09:58 Temperature 99.9 F H 99.9 F H Temperature Source Temporal Temporal Pulse Rate 54 L 54 L Respiratory Rate 20 H 20 H 18 Respiratory Effort Short of Breath Respiratory Pattern Normal Blood Pressure 130/51 H 130/51 H Blood Pressure Mean 77 77 Pulse Ox 87 99 99 Oxygen Delivery Method Room Air Nasal Cannula Nasal Cannula Oxygen Flow Rate (L/min) 2 2 04/13/21 11:18 04/13/21 12:44 04/13/21 12:45 Temperature 98.9 F 98.9 F Temperature Source Temporal Temporal Pulse Rate 54 L 52 L Respiratory Rate 16 5 L Respiratory Effort Respiratory Pattern Blood Pressure 162/100 H 111/64 Blood Pressure Mean 120 79 Pulse Ox 96 92 92 Oxygen Delivery Method Nasal Cannula Nasal Cannula Nasal Cannula Oxygen Flow Rate (L/min) 2 2 2 Weight Weight: 112.9 kg Body Mass Index (BMI) 36.7 Physical Exam Const alert Constitutional Narrative: Confused elderly white female lying in bed, appears comfortable, nontoxic, oxygen has been pulled from her nares and is under her chin and she has pulled her pulse oximeter off HEENT normocephalic, head/scalp atraumatic and moist oral mucous membranes HEENT Narrative: Dentition is poor, Mallampati is 3 Eyes PERRL, EOMs intact bilaterally and conjunctivae normal Eyes Narrative: No scleral icterus Neck no lymphadenopathy, supple and no JVD Neck Narrative: Trachea midline, no thyroid enlargement Resp normal respiratory effort, no retractions, no use of accessory muscles and clear to auscultation bilaterally Resp Narrative: Diffusely diminished but no adventitious sounds, patient shows no signs of respiratory distress Auscultation: Negative for crackles, rales, rhonchi or wheezes Cardio regular rhythm, S1 normal heart sound, S2 normal heart sound, no murmurs, no rub, no gallops, no clicks and no JVD Cardio Narrative: Mild bradycardia with intermittent PVCs GI normal to inspection, nondistended, normoactive bowel sounds, soft to palpation, non-tender and non-distended GI Narrative: Small umbilical hernia Palpation: hernia Extremity no clubbing, cyanosis or edema Peripheral Pulses: Yes pulses 2+ throughout Skin no rashes or lesions noted, no wounds, skin turgor normal, no jaundice, no petechiae and no mottling Skin Narrative: Skin is pale Neuro CN's II-XII intact bilaterally, moves all extremities and no focal motor deficits Neuro Narrative: Significant confusion and patient overall not really participatory in review of systems but is able to follow commands for exam, generalized weakness, proximal greater than distal, nonsensical speech at times although answers yes and no questions intermittently Sensorium / Orientation: awake and alert Psych Psych Narrative: Difficult to assessed secondary to mental status but patient does not appear to be in any distress or show signs of depression Results Lab / Micro Data Result Diagrams: 04/13/21 10:50 04/13/21 10:50 Labs: Laboratory Results - last 24 hr 04/13/21 10:50: WBC 3.4 L, RBC 3.29 L, Hgb 10.4 L, Hct 31.1 L, MCV 94.5, MCH 31.6, MCHC 33.4, RDW Std Deviation 44.9 H, RDW Coeff of Sosa 13.0, Plt Count 157, MPV 10.8, Immature Gran % (Auto) 0.300, Neut % (Auto) 65.2, Lymph % (Auto) 14.7 L, [place] % (Auto) 18.6 H, Eos % (Auto) 0.6, Baso % (Auto) 0.6, Absolute Neuts (auto) 2.2, Absolute Lymphs (auto) 0.50 L, Nucleated RBC % 0, Differential Comment COMMENT, Diff Path Review September foll 04/13/21 10:50: Sodium 137, Potassium 4.2, Chloride 101, Carbon Dioxide 30.0, Anion Gap 6, BUN 27 H, Creatinine 1.78 H, Estim Creat Clear Calc 24.59, Est GFR (MDRD) Af Amer 35 L, Est GFR (MDRD) Non-Af 29 L, BUN/Creatinine Ratio 15.2, Glucose 136 H, Calcium 8.3 L, Total Bilirubin 0.40, AST 16, ALT 12 L, Alkaline Phosphatase 108, Troponin I High Sens 49, Total Protein 7.0, Albumin 2.9 L, Globulin 4.1, Albumin/Globulin Ratio 0.7 L 04/13/21 10:50: Lactic Acid 0.4 Micro: Microbiology 04/13/21 11:15 Nasal Secretion SARS-CoV-2 Antigen (Rapid) - Final SARS-CoV-2 (COVID 19) Radiology Impression Chest X-Ray 04/13/21 11:18 IMPRESSION: Degenerative changes, as described above. No demonstrated acute cardiopulmonary process. Electronically Signed: Vinny Yuan MD at 12:10 EST , Service support , Assessment & Plan Assessment/Plan (1) Acute hypoxemic respiratory failure: (2) COVID-19: (3) Leukopenia: (4) Lymphopenia: PLAN: Acute hypoxic respiratory failure secondary to COVID-19 pneumonia -There appears to be an new outbreak starting at [facility] from where the patient presents -Patient tested positive on 04/13/2021 -Patient requiring 2 L nasal cannula keep sats greater than 88% -Oxygen saturation on room air was 87% at admission -With multiple comorbidities which make her high risk for deterioration -CODE STATUS is DNR CCA -Decadron day -Remdesivir day of --> patient with CKD and borderline GFR's -If any deterioration in renal function may need to discontinue remdesivir -Blood cultures have been sent -I-S/Pep if patient is able -Encourage prone lying if possible -It appears that patient is fairly debilitated at baseline -We will continue home Lasix to encourage euvolemia Possible metabolic encephalopathy -Unclear exactly what baseline mental status is -Patient is acutely confused unable to really participate in her review of systems or history -We will try to discuss further with family when they are available as no one is at the bedside upon my exam Leukopenia with lymphopenia -Secondary to acute COVID-19 infection -Continue to monitor counts Chronic normocytic anemia -Patient is on iron at baseline -We will continue p.o. iron -Continue to monitor -No signs of acute bleeding CKD stage IIIb-IV -Current serum creatinine is 1.78 and this appears close to her baseline--> this gives her a GFR of 29-30 -Monitor closely as we may need to discontinue remdesivir if serum creatinine worsens -Continue home diuresis -Avoid nephrotoxins as able DM-2 -Hold home metformin been -Accu-Cheks AC 3 times daily -Sliding scale insulin -Carb controlled diet Paroxysmal atrial fibrillation -continue home metoprolol -Continue apixaban 2.5 mg twice daily Hyperlipidemia -Continue atorvastatin Hypertension -continue Lasix -Continue metoprolol Hypothyroidism -Continue levothyroxine DVT prophylaxis -Patient is fully anticoagulated with apixaban -SCDs CODE STATUS -DNR CCA no intubation Charges/Coding Visit Charges Inpatient E&M: 90420 Init Hosp L3
--- NOTE | 2021-04-13 14:57 | NURSING ---
unable to complete full admission/full assessment due to significant confusion
[2021-04-13] MEDS: Insulin Lispro 100 UNIT/ML INSULN.PEN SC (17:35)
[2021-04-13 18:26] LABS: Bedside Glucose 179 mg/dL (70-110)
[2021-04-13] MEDS: Atorvastatin Calcium 40 MG Tablet PO (21:45)
[2021-04-13] MEDS: APIXABAN 2.5 MG TABLET PO (21:48)
[2021-04-13 22:45] LABS: Bedside Glucose 284 mg/dL (70-110)
[2021-04-14] VITALS (12 sets, daily range): BP systolic 108–144; BP diastolic 38–81; PULSE 53–72; RESP 15–18; TEMP 36.6–37.3; O2SAT 96–100
[2021-04-14] MEDS: Levothyroxine 50 MCG Tablet PO (06:27)
[2021-04-14 06:36] LABS: Hematocrit 33.2 % (37-47); Hemoglobin 11.2 g/dL (12.0-15.0); Mean Corp Hgb Conc 33.7 g/dL (32-36); Mean Corpuscular Hgb 31.8 pg (27.0-32.0); Mean Corpuscular Volume 94.3 fL (81-99); Mean Platelet Vol. 11.1 fl (6.2-12.0); Platelet Count 166 K/mm3 (150-450); RBC Distribution Width SD 44.7 fl (35.1-43.9); Red Blood Count 3.52 M/mm3 (4.2-5.4); White Blood Count 3.1 K/mm3 (4.4-11.0)
[2021-04-14 06:55] LABS: Bedside Glucose 142 mg/dL (70-110)
[2021-04-14 07:04] LABS: ALB/GLOB Ratio 0.7 RATIO (0.9-2.4); AST(SGOT) 18 U/L (15-37); Alanine Aminotransfer ALT/SGPT 12 U/L (13-56); Alkaline Phosphatase 110 U/L (45-117); Anion Gap 7 (5-15); BUN 34 mg/dL (7-18); BUN/Creat Ratio 18.2 RATIO (10-20); Calcium,Total 8.4 mg/dL (8.5-10.1); Chloride 98 mmol/L (98-107); Creatinine, Serum 1.87 mg/dL (0.55-1.02); EST Glomerular Filtration Rate 27 mL/min (>60); Est Glom Filt Rate - Afr Amer 33 mL/min (>60); Globulin 4.4 g/dL (2.2-4.2); Glucose 155 mg/dL (74-106); Magnesium 2.2 mg/dL (1.6-2.6); Phosphorus 3.2 mg/dL (2.5-4.9); Potassium 4.1 mmol/L (3.5-5.1); Protein, Total 7.4 g/dL (6.4-8.2); Sodium Level 135 mmol/L (136-145)
[2021-04-14] MEDS: Furosemide 40 MG Tablet PO (09:21)
[2021-04-14] MEDS: Metoprolol Tartrate 25 MG Tablet PO ×2 (09:21→20:32)
[2021-04-14] MEDS: Pantoprazole Sodium 40 MG Tablet PO (09:21)
[2021-04-14] MEDS: APIXABAN 2.5 MG TABLET PO ×2 (09:21→20:32)
[2021-04-14] MEDS: Ferrous Sulfate 325 MG Tablet PO (09:21)
[2021-04-14] MEDS: dexAMETHasone 4 MG Tablet 6 MG PO (09:22)
[2021-04-14] MEDS: Insulin Lispro 100 UNIT/ML INSULN.PEN SC ×2 (11:15→16:24)
[2021-04-14] MEDS: 0.9% Saline Lock 10 ML Syringe IV ×2 (11:15→23:25)
[2021-04-14 12:11] LABS: Bedside Glucose 184 mg/dL (70-110)
--- NOTE | 2021-04-14 15:16 | PN.HOSP_ITS ---
Subjective Subjective No issues overnight. Patient is unable to give me much information. She remains confused but I am unclear what her baseline mental status is at this time. She is currently on 2 L nasal cannula with oxygen saturations at 96 to 100%. Patient vocalizes no complaints at this time Objective Data Objective Data Vital Signs: Vital Signs Temp Pulse Resp BP Pulse Ox 97.9 F 58 L 18 108/56 L 100 04/14/21 14:00 04/14/21 14:00 04/14/21 14:00 04/14/21 14:00 04/14/21 14:00 Oxygen Flow Rate (L/min) 2 Oxygen Delivery Method Nasal Cannula Weight: 109.5 kg Body Mass Index (BMI) 35.6 Intake & Output: Intake and Output for Last 24 Hours 04/12/21 04/13/21 04/14/21 23:59 23:59 23:59 Intake Total 250 / 350 690 / 690 Balance 250 / 350 690 / 690 Lab / Micro Data Result Diagrams: 04/14/21 06:02 04/14/21 06:02 Labs: Laboratory Results - last 24 hr 04/13/21 17:08: POC Glucose 179 H 04/13/21 22:12: POC Glucose 284 H 04/14/21 06:02: WBC 3.1 L, RBC 3.52 L, Hgb 11.2 L, Hct 33.2 L, MCV 94.3, MCH 31.8, MCHC 33.7, RDW Std Deviation 44.7 H, RDW Coeff of Sosa 13.0, Plt Count 166, MPV 11.1 04/14/21 06:02: Sodium 135 L, Potassium 4.1, Chloride 98, Carbon Dioxide 30.0, Anion Gap 7, BUN 34 H, Creatinine 1.87 H, Estim Creat Clear Calc 23.40, Est GFR (MDRD) Af Amer 33 L, Est GFR (MDRD) Non-Af 27 L, BUN/Creatinine Ratio 18.2, Glucose 155 H, Calcium 8.4 L, Phosphorus 3.2, Magnesium 2.2, Total Bilirubin 0.40, AST 18, ALT 12 L, Alkaline Phosphatase 110, Total Protein 7.4, Albumin 3.0 L, Globulin 4.4 H, Albumin/Globulin Ratio 0.7 L 04/14/21 06:35: POC Glucose 142 H 04/14/21 11:14: POC Glucose 184 H Micro: Microbiology 04/13/21 11:15 Nasal Secretion SARS-CoV-2 Antigen (Rapid) - Final SARS-CoV-2 (COVID 19) Physical Exam Const alert Constitutional Narrative: elderly white female lying in bed, appears comfortable, nontoxic, sleeping upon my arrival but awakens easily still fairly confused and answers no orientation questions correctly HEENT normocephalic, head/scalp atraumatic and moist oral mucous membranes Eyes PERRL, EOMs intact bilaterally and conjunctivae normal Eyes Narrative: No scleral icterus Neck no lymphadenopathy, supple and no JVD Neck Narrative: Trachea midline, no thyroid enlargement Resp normal respiratory effort, no retractions, no use of accessory muscles and clear to auscultation bilaterally Resp Narrative: Diffusely diminished but no adventitious sounds, patient shows no signs of respiratory distress Auscultation: Negative for crackles, rales, rhonchi or wheezes Cardio regular rhythm, S1 normal heart sound, S2 normal heart sound, no murmurs, no rub, no gallops, no clicks and no JVD Cardio Narrative: Mild bradycardia with intermittent PVCs GI normal to inspection, nondistended, normoactive bowel sounds, soft to palpation, non-tender and non-distended GI Narrative: Small umbilical hernia Palpation: hernia Extremity no clubbing, cyanosis or edema Skin no rashes or lesions noted, no wounds, skin turgor normal, no jaundice, no petechiae and no mottling Skin Narrative: Skin is pale Neuro CN's II-XII intact bilaterally, moves all extremities and no focal motor deficits Neuro Narrative: Significant confusion and patient overall not really participatory in review of systems but is able to follow commands for exam, generalized weakness, proximal greater than distal, nonsensical speech at times although answers yes and no questions intermittently Sensorium / Orientation: awake and alert Psych Psych Narrative: Difficult to assessed secondary to mental status but patient does not appear to be in any distress or show signs of depression Assessment & Plan Assessment/Plan (1) Acute hypoxemic respiratory failure: (2) COVID-19: (3) Leukopenia: (4) Lymphopenia: PLAN: Acute hypoxic respiratory failure secondary to COVID-19 pneumonia -There appears to be an new outbreak starting at [facility] from where the patient presents -Patient tested positive on 04/13/2021 -Patient was stable oxygen saturations on 2 L at rest at 96 to 100% -Oxygen saturation on room air was 87% at admission -With multiple comorbidities which make her high risk for deterioration -CODE STATUS is DNR CCA -Decadron day 2 -We will have to discontinue remdesivir at this time due to mild deterioration in renal function to a serum creatinine of 1.87 and a creatinine clearance of 27 -Blood cultures have been sent -I-S/Pep if patient is able -Encourage prone lying if possible -It appears that patient is fairly debilitated at baseline -Hold Lasix with slightly worsening creatinine as I anticipate her p.o. intake is down from baseline as well Possible metabolic encephalopathy -Unclear exactly what baseline mental status is -Patient is acutely confused unable to really participate in her review of systems or history Leukopenia with lymphopenia -Secondary to acute COVID-19 infection -Continue to monitor counts Chronic normocytic anemia -Patient is on iron at baseline -We will continue p.o. iron -Continue to monitor -No signs of acute bleeding -ALEX globin stable CKD stage IIIb-IV -Current serum creatinine is 1.87 and this appears close to her baseline -Monitor closely as we may need to discontinue remdesivir if serum creatinine worsens -We will hold home diuretics at this time -Avoid nephrotoxins as able DM-2 -Hold home metformin been -Accu-Cheks AC 3 times daily -Sliding scale insulin -Carb controlled diet Paroxysmal atrial fibrillation -continue home metoprolol -Continue apixaban 2.5 mg twice daily Hyperlipidemia -Continue atorvastatin Hypertension -continue Lasix -Continue metoprolol Hypothyroidism -Continue levothyroxine DVT prophylaxis -Patient is fully anticoagulated with apixaban -SCDs CODE STATUS -DNR CCA no intubation Charges/Coding Visit Charges Inpatient E&M: 47123 Subs Hosp L2
[2021-04-14 16:36] LABS: Bedside Glucose 280 mg/dL (70-110)
[2021-04-14] MEDS: Atorvastatin Calcium 40 MG Tablet PO (20:36)
[2021-04-14 21:01] LABS: Bedside Glucose 218 mg/dL (70-110)
--- NOTE | 2021-04-14 22:50 | NURSING ---
STOOL SAMPLE OBTAINED PER NEW ORDER [facility]. PT IS HAVING COPIOUS AMOUNTS OF LIQUID & SOME SOFT NONFORMED BROWN STOOL. PT APPEARS PAINFUL BUT UNABLE TO INDICATE WHERE PAIN IS. FLATUS & SOME BELCHING NOTED WELL. PT HAS EPISODES OF STARING AT THE CEILING. VSS. BLOOD SUGAR 218. PT IS CURRENTLY IN COVID ISOLATION AND IS NORMALLY ONLY ORIENTED TO SELF. DR LYNDSEY MORRIS.
[2021-04-15] VITALS (11 sets, daily range): BP systolic 105–133; BP diastolic 33–60; PULSE 53–67; RESP 15–18; TEMP 36.3–37; O2SAT 94–99
--- NOTE | 2021-04-15 03:15 | NURSING ---
C DIFF RESULT NOTED NEGATIVE
[2021-04-15] MEDS: Insulin Lispro 100 UNIT/ML INSULN.PEN SC ×3 (06:13→16:30)
[2021-04-15 06:26] LABS: Bedside Glucose 164 mg/dL (70-110)
[2021-04-15 07:50] LABS: Hematocrit 32.2 % (37-47); Hemoglobin 10.9 g/dL (12.0-15.0); Mean Corp Hgb Conc 33.9 g/dL (32-36); Mean Corpuscular Hgb 31.6 pg (27.0-32.0); Mean Corpuscular Volume 93.3 fL (81-99); Mean Platelet Vol. 11.1 fl (6.2-12.0); Platelet Count 139 K/mm3 (150-450); RBC Distribution Width CV 12.9 % (11.6-14.6); RBC Distribution Width SD 44.1 fl (35.1-43.9); Red Blood Count 3.45 M/mm3 (4.2-5.4); White Blood Count 4.2 K/mm3 (4.4-11.0)
[2021-04-15 08:28] LABS: ALB/GLOB Ratio 0.7 RATIO (0.9-2.4); AST(SGOT) 29 U/L (15-37); Alanine Aminotransfer ALT/SGPT 17 U/L (13-56); Albumin, Serum 2.8 g/dL (3.2-5.0); Alkaline Phosphatase 93 U/L (45-117); Anion Gap 7 (5-15); BUN 42 mg/dL (7-18); BUN/Creat Ratio 19.7 RATIO (10-20); Calcium,Total 8.7 mg/dL (8.5-10.1); Chloride 98 mmol/L (98-107); Creatinine, Serum 2.13 mg/dL (0.55-1.02); EST Glomerular Filtration Rate 23 mL/min (>60); Est Glom Filt Rate - Afr Amer 28 mL/min (>60); Estimated Creatinine Clearance 20.55 ml/min; Globulin 4.2 g/dL (2.2-4.2); Glucose 156 mg/dL (74-106); Sodium Level 134 mmol/L (136-145)
[2021-04-15] MEDS: Pantoprazole Sodium 40 MG Tablet PO ×2 (08:47→08:48)
[2021-04-15] MEDS: dexAMETHasone 4 MG Tablet 6 MG PO (08:47)
[2021-04-15] MEDS: Metoprolol Tartrate 25 MG Tablet PO ×2 (08:48→21:28)
[2021-04-15] MEDS: Ferrous Sulfate 325 MG Tablet PO (08:48)
[2021-04-15] MEDS: APIXABAN 2.5 MG TABLET PO ×2 (08:48→21:28)
[2021-04-15 12:55] LABS: Bedside Glucose 185 mg/dL (70-110)
--- NOTE | 2021-04-15 15:40 | PN.HOSP_ITS ---
Subjective Subjective No issues overnight. Patient remains confused. Patient is sleeping but does awaken but startles. The nursing hotel or motel cleaning supervisor for the unit did call her facility [facility] and she does have baseline confusion with word salad and intermittent hallucinations which is consistent with our current exam. Objective Data Objective Data Vital Signs: Vital Signs Temp Pulse Resp BP Pulse Ox 97.3 F L 54 L 16 114/55 L 94 04/15/21 12:19 04/15/21 12:19 04/15/21 12:19 04/15/21 12:19 04/15/21 12:19 Oxygen Flow Rate (L/min) 2 Oxygen Delivery Method Nasal Cannula Weight: 109.5 kg Body Mass Index (BMI) 35.6 Intake & Output: Intake and Output for Last 24 Hours 04/13/21 04/14/21 04/15/21 23:59 23:59 23:59 Intake Total 250 / 350 930 / 930 120 / 120 Balance 250 / 350 930 / 930 120 / 120 Medical Nutrition Assessment Dietitian: Malnutrition Criteria Met Start: 04/15/21 13:48 Freq: Status: Active Protocol: Document 04/15/21 13:49 SLA (Rec: 04/15/21 13:50 SLA [id number]) Nutrition Malnutrition Evidence of Malnutrition Exists Yes Malnutrition (severe): Acute Illness/Injury Evidenced By Suboptimal Energy Intake ( Severe),Weight Loss (Severe) Intake Problem Inadequate Oral Intake Status Inactive Problem Clinical Problem Acute Disease or Injury Related Malnutrition Etiology related to confusion, acute illness and inability to consume adequate nutrition to meet est nutritional needs Signs/Symptoms as evidenced by poor po intake at meals and 3.1% wt loss since admission. Status Active Problem Altered Nutrient-Related Laboratory Values Etiology related to diabetes and steroid administration Signs/Symptoms as evidenced by gluc 156 Status Active Problem Recommendation Dietitian Recommendations/Changes Will liberalize diet to Regular d/t s/s of malnutrition Will provide 240 ml glucerna shake with meals for increased nutrition if consumed. Lab / Micro Data Result Diagrams: 04/15/21 07:24 04/15/21 07:24 Labs: Laboratory Results - last 24 hr 04/14/21 16:22: POC Glucose 280 H 04/14/21 20:29: POC Glucose 218 H 04/15/21 06:11: POC Glucose 164 H 04/15/21 07:24: WBC 4.2 L, RBC 3.45 L, Hgb 10.9 L, Hct 32.2 L, MCV 93.3, MCH 31.6, MCHC 33.9, RDW Std Deviation 44.1 H, RDW Coeff of Sosa 12.9, Plt Count 139 L, MPV 11.1 04/15/21 07:24: Sodium 134 L, Potassium 4.0, Chloride 98, Carbon Dioxide 29.0, Anion Gap 7, BUN 42 H, Creatinine 2.13 H, Estim Creat Clear Calc 20.55, Est GFR (MDRD) Af Amer 28 L, Est GFR (MDRD) Non-Af 23 L, BUN/Creatinine Ratio 19.7, Glucose 156 H, Calcium 8.7, Total Bilirubin 0.50, AST 29, ALT 17, Alkaline Phosphatase 93, Total Protein 7.0, Albumin 2.8 L, Globulin 4.2, Albumin/Globulin Ratio 0.7 L 04/15/21 12:11: POC Glucose 185 H Micro: Microbiology 04/13/21 10:50 Blood Culture (Wb) - Right Hand Blood Culture - Preliminary No growth in 48 hours. 04/13/21 10:30 Blood Culture (Wb) - Arm Left Blood Culture - Preliminary No growth in 48 hours. 04/14/21 22:35 Stool C. difficile DNA Amplification - Final 04/13/21 11:15 Nasal Secretion SARS-CoV-2 Antigen (Rapid) - Final SARS-CoV-2 (COVID 19) Physical Exam Const alert Constitutional Narrative: elderly white female lying in bed, sleeping but does awaken to tactile stimulus, has significant startle with disruption of sleep, appears comfortable, nontoxic, word salad upon communication Exam Limitations: other limitations Nutritional Appearance: obese HEENT normocephalic, head/scalp atraumatic and moist oral mucous membranes HEENT Narrative: Moist mucous membranes, Mallampati 3, no thrush Head and Scalp: normocephalic Resp normal respiratory effort, no retractions, no use of accessory muscles and clear to auscultation bilaterally Resp Narrative: Diffusely diminished but no adventitious sounds, patient shows no signs of respiratory distress Auscultation: Negative for crackles, rales, rhonchi or wheezes Cardio regular rhythm, S1 normal heart sound, S2 normal heart sound, no murmurs, no rub, no gallops, no clicks and no JVD Cardio Narrative: Mild bradycardia with intermittent ectopy GI normal to inspection, nondistended, normoactive bowel sounds, soft to palpation, non-tender and non-distended GI Narrative: Small umbilical hernia Palpation: hernia Extremity no clubbing, cyanosis or edema Peripheral Pulses: Yes pulses 2+ throughout Neuro CN's II-XII intact bilaterally and no focal motor deficits Neuro Narrative: Significant confusion but follows most commands for exam, generalized weakness, proximal greater than distal, nonsensical speech at times although answers yes and no questions intermittently Sensorium / Orientation: alert Assessment & Plan Assessment/Plan (1) Acute hypoxemic respiratory failure: (2) COVID-19: (3) Leukopenia: (4) Lymphopenia: PLAN: Acute hypoxic respiratory failure secondary to COVID-19 pneumonia -There appears to be an new outbreak starting at [facility] from where the patient presents -Patient tested positive on 04/13/2021 -Patient with stable oxygen saturations on 2 L at rest at 94 to 97% -Oxygen saturation on room air was 87% at admission -With multiple comorbidities which make her high risk for deterioration -CODE STATUS is DNR CCA -Decadron day 3 of 10 -Patient with some diarrhea and will therefore start low-dose fluids at 50 cc/h as to avoid hypervolemia -Remdesivir had to be discontinued secondary to worsening renal function and creatinine clearance less than 30 -Blood cultures are negative -I-S/Pep if patient is able -Encourage prone lying if possible -It appears that patient is fairly debilitated at baseline -Hold Lasix with slightly worsening creatinine as I anticipate her p.o. intake is down from baseline as well Dementia -We were able to clarify today her baseline mental status is confusion with word salad and intermittent hallucinations Leukopenia with lymphopenia -Secondary to acute COVID-19 infection -Continue to monitor counts Chronic normocytic anemia -Patient is on iron at baseline -We will continue p.o. iron -Continue to monitor -No signs of acute bleeding -Hemoglobin is stable CKD stage IIIb-IV -Current serum creatinine is 2.13 which is slightly up -We will start some gentle hydration his p.o. intake has not been great and patient is having some diarrhea -LR at 50 cc/h--> will try to avoid hypervolemia -Monitor closely as we may need to discontinue remdesivir if serum creatinine worsens -We will hold home diuretics at this time -Avoid nephrotoxins as able DM-2 -Hold home metformin been -Accu-Cheks AC 3 times daily -Sliding scale insulin -Carb controlled diet Paroxysmal atrial fibrillation -continue home metoprolol -Continue apixaban 2.5 mg twice daily Hyperlipidemia -Continue atorvastatin Hypertension -Hold Lasix -Continue metoprolol Hypothyroidism -Continue levothyroxine DVT prophylaxis -Patient is fully anticoagulated with apixaban -SCDs CODE STATUS -DNR CCA no intubation Charges/Coding Visit Charges Inpatient E&M: 77875 Subs Hosp L2
[2021-04-15] MEDS: Lactated Ringers 1,000 ML 50 ML IV (16:29)
[2021-04-15] MEDS: 0.9% Saline Lock 10 ML Syringe IV (16:32)
[2021-04-15 17:16] LABS: Bedside Glucose 384 mg/dL (70-110)
[2021-04-15] MEDS: Atorvastatin Calcium 40 MG Tablet PO (21:28)
[2021-04-15 22:16] LABS: Bedside Glucose 302 mg/dL (70-110)
[2021-04-16] VITALS (8 sets, daily range): BP systolic 116–135; BP diastolic 47–50; PULSE 44–62; RESP 16–18; TEMP 35.9–36.6; O2SAT 93–98
[2021-04-16] MEDS: Insulin Lispro 100 UNIT/ML INSULN.PEN SC ×3 (06:12→15:42)
[2021-04-16] MEDS: Levothyroxine 50 MCG Tablet PO (06:12)
[2021-04-16 06:31] LABS: Bedside Glucose 258 mg/dL (70-110)
[2021-04-16 06:57] LABS: Hematocrit 32.9 % (37-47); Hemoglobin 11.5 g/dL (12.0-15.0); Mean Corpuscular Hgb 31.9 pg (27.0-32.0); Mean Corpuscular Volume 91.1 fL (81-99); Mean Platelet Vol. 11.7 fl (6.2-12.0); Platelet Count 134 K/mm3 (150-450); RBC Distribution Width CV 12.7 % (11.6-14.6); RBC Distribution Width SD 42.4 fl (35.1-43.9); Red Blood Count 3.61 M/mm3 (4.2-5.4); White Blood Count 3.2 K/mm3 (4.4-11.0)
[2021-04-16 07:13] LABS: ALB/GLOB Ratio 0.6 RATIO (0.9-2.4); AST(SGOT) 39 U/L (15-37); Alanine Aminotransfer ALT/SGPT 21 U/L (13-56); Albumin, Serum 2.6 g/dL (3.2-5.0); Alkaline Phosphatase 88 U/L (45-117); Anion Gap 8 (5-15); BUN 53 mg/dL (7-18); BUN/Creat Ratio 25.2 RATIO (10-20); Calcium,Total 8.8 mg/dL (8.5-10.1); Chloride 99 mmol/L (98-107); EST Glomerular Filtration Rate 24 mL/min (>60); Est Glom Filt Rate - Afr Amer 29 mL/min (>60); Estimated Creatinine Clearance 20.84 ml/min; Globulin 4.3 g/dL (2.2-4.2); Glucose 263 mg/dL (74-106); Potassium 4.3 mmol/L (3.5-5.1); Protein, Total 6.9 g/dL (6.4-8.2); Sodium Level 134 mmol/L (136-145)
[2021-04-16] MEDS: dexAMETHasone 4 MG Tablet 6 MG PO (08:29)
[2021-04-16] MEDS: Ferrous Sulfate 325 MG Tablet PO (08:29)
[2021-04-16] MEDS: Metoprolol Tartrate 25 MG Tablet PO ×2 (08:29→21:43)
[2021-04-16] MEDS: APIXABAN 2.5 MG TABLET PO ×2 (08:30→21:43)
--- NOTE | 2021-04-16 10:25 | CASEMGMT ---
JEREMIAH faxed updates to [facility]. JEREMIAH called [facility] to talk with Naomi Hanks the scutcher tender. However, she was busy and will call JEREMIAH back. Flori PARKER
[2021-04-16] MEDS: Lactated Ringers 1,000 ML 50 ML IV (10:51)
--- NOTE | 2021-04-16 11:11 | CASEMGMT ---
JEREMIAH received a return call from Naomi at [facility]. [facility] can take patient back and increase her care. However, she thinks it might be helpful if patient got stronger first. Naomi is not sure if patient's granddaughter who is also her healthcare POA will want her to go somewhere for therapy. JEREMIAH told Naomi that JEREMIAH will call patient's POAElizabeth to see what she would like to do. JEREMIAH called patient's granddaughter/POA Elizabeth. She is not sure about the plan. Patient has never been to a alf for rehab before. JEREMIAH expressed to her that patient is not even rolling or getting up right now. Per therapy notes patient is not cooperating in working with therapy so it is unknown if patient would even work with therapy at a alf. Elizabeth said she will call [facility] and talk with Naomi. She also asked if a nurse could call her with a medical update. JEREMIAH will ask the nurse to call her. Flori PARKER
[2021-04-16 11:30] LABS: Bedside Glucose 349 mg/dL (70-110)
--- NOTE | 2021-04-16 11:49 | CASEMGMT ---
Per Torrie SYKES, pt has been bed bound and she believes is mostly that way at [place]. Oxygen testing done and pt does not qualify for home oxygen at rest. CM to follow. Yocasta SYKES CM
--- NOTE | 2021-04-16 11:55 | PN.HOSP_ITS ---
Subjective Subjective Patient is an 85-year-old lady resident at an extended care facility brought to the hospital with persistent cough. Tested positive for COVID-19 admitted to a monitored bed for further management Objective Data Objective Data Vital Signs: Vital Signs Temp Pulse Resp BP Pulse Ox 97.8 F 50 L 16 119/49 L 93 04/16/21 08:25 04/16/21 08:29 04/16/21 08:25 04/16/21 08:25 04/16/21 10:49 Oxygen Flow Rate (L/min) [At 2 REST with Oxygen] Oxygen Flow Rate (L/min) 2 Oxygen Delivery Method Nasal Cannula Weight: 109.5 kg Body Mass Index (BMI) 35.6 Intake & Output: Intake and Output for Last 24 Hours 04/14/21 04/15/21 04/16/21 23:59 23:59 23:59 Intake Total 930 / 930 600 / 600 918.33 / 918.33 Balance 930 / 930 600 / 600 918.33 / 918.33 Medical Nutrition Assessment Dietitian: Malnutrition Criteria Met Start: 04/15/21 13: 48 Freq: Status: Active Protocol: Document 04/15/21 13:49 SLA (Rec: 04/15/21 13:50 SLA [id number]) Nutrition Malnutrition Evidence of Malnutrition Exists Yes Malnutrition (severe): Acute Illness/Injury Evidenced By Suboptimal Energy Intake ( Severe),Weight Loss (Severe) Intake Problem Inadequate Oral Intake Status Inactive Problem Clinical Problem Acute Disease or Injury Related Malnutrition Etiology related to confusion, acute illness and inability to consume adequate nutrition to meet est nutritional needs Signs/Symptoms as evidenced by poor po intake at meals and 3.1% wt loss since admission. Status Active Problem Altered Nutrient-Related Laboratory Values Etiology related to diabetes and steroid administration Signs/Symptoms as evidenced by gluc 156 Status Active Problem Recommendation Dietitian Recommendations/Changes Will liberalize diet to Regular d/t s/s of malnutrition Will provide 240 ml glucerna shake with meals for increased nutrition if consumed. Lab / Micro Data Result Diagrams: 04/16/21 06:20 04/16/21 06:20 Labs: Laboratory Results - last 24 hr 04/15/21 12:11: POC Glucose 185 H 04/15/21 16:28: POC Glucose 384 H 04/15/21 21:32: POC Glucose 302 H 04/16/21 06:11: POC Glucose 258 H 04/16/21 06:20: WBC 3.2 L, RBC 3.61 L, Hgb 11.5 L, Hct 32.9 L, MCV 91.1, MCH 31.9, MCHC 35.0, RDW Std Deviation 42.4, RDW Coeff of Sosa 12.7, Plt Count 134 L, MPV 11.7 04/16/21 06:20: Sodium 134 L, Potassium 4.3, Chloride 99, Carbon Dioxide 27.0, Anion Gap 8, BUN 53 H, Creatinine 2.10 H, Estim Creat Clear Calc 20.84, Est GFR (MDRD) Af Amer 29 L, Est GFR (MDRD) Non-Af 24 L, BUN/Creatinine Ratio 25.2 H, Glucose 263 H, Calcium 8.8, Total Bilirubin 0.50, AST 39 H, ALT 21, Alkaline Phosphatase 88, Total Protein 6.9, Albumin 2.6 L, Globulin 4.3 H, Albumin/Globulin Ratio 0.6 L 04/16/21 10:53: POC Glucose 349 H Micro: Microbiology 04/13/21 10:50 Blood Culture (Wb) - Right Hand Blood Culture - Preliminary No growth in 48 hours. 04/13/21 10:30 Blood Culture (Wb) - Arm Left Blood Culture - Preliminary No growth in 48 hours. 04/14/21 22:35 Stool C. difficile DNA Amplification - Final 04/13/21 11:15 Nasal Secretion SARS-CoV-2 Antigen (Rapid) - Final SARS-CoV-2 (COVID 19) Physical Exam Narrative GENERAL: Oriented to self only HEENT: Atraumatic; EYES; Anicteric, Normal Conjunctiva NECK; supple, normal thyroid, RESPIRATORY: Diminished to auscultation CARDIOVASCULAR: Regular S1 S2, GI: soft, normoactive bowel sounds, : No Renal angle tenderness; EXTREMITIES: No edema, no clubbing, MUSCULOSKELETAL: no muscle waisting NEURO: Awake; no lateralizing signs. SKIN: No Rash PSYCH; Flat affect Assessment & Plan Assessment/Plan (1) Acute hypoxemic respiratory failure: (2) COVID-19: (3) Leukopenia: (4) Lymphopenia: PLAN: Patient is an 85-year-old lady resident at an extended care facility brought to the hospital with persistent cough. Tested positive for COVID-19 admitted to a monitored bed for further management 1. Acute hypoxic respiratory failure ?Secondary to COVID-19 pneumonia. Patient has been managed with Decadron. Patient was also placed on remdesivir which was discontinued due to worsening kidney function. Has since been placed on supplemental oxygen which is being titrated to keep saturation greater than 90 2. Dementia ?Patient apparently has episodic word salad as well as intermittent hallucinations 3. Acute kidney injury ?Superimposed on chronic kidney disease stage III. Creatinine on admission was 1.70 did worsen to 2.13, down to 2.10 as of 04/16/2021 4. Anemia - Secondary to chronic disorder monitoring H&H and transfuse if patient becomes symptomatic or hemoglobin falls below 7 5. Diabetes mellitus type II -patient's oral hypoglycemics held. Placed on long acting insulin, Accu-Cheks a.c. and at bedtime and covered with sliding scale insulin 6. Paroxysmal A. fib ?Rate controlled on metoprolol on apixaban 2.5 mg twice daily did continue 7. Dyslipidemia -Patient is on statin therapy, continued at home dose 8. Hypertension - Blood pressure controlled, home medications continued with dose adjustment as needed 9. Hypothyroidism - Patient is on levothyroxine home dose continued 10. DVT prophylaxis -Patient is fully anticoagulated with apixaban -SCDs CODE STATUS -DNR CCA no intubation Charges/Coding Visit Charges Inpatient E&M: 80484 Subs Hosp L2
--- NOTE | 2021-04-16 13:51 | CASEMGMT ---
JEREMIAH called patient's granddaughter and MOLLY Johnson. She spoke with [facility] and the RN at [facility]. Elizabeth said [facility] would prefer patient go to a retirement to get stronger before returning. Elizabeth said Naomi at [facility] told her that the agencies they use for home health therapies may not see patient due to her being COVID positive. JEREMIAH explained to her that [facility] in [place] is the only local facility that is accepting COVID patients. JEREMIAH explained the other facilities are in [facility]. Elizabeth said [facility] is fine as she does not want to send patient that far away. Elizabeth is not sure that patient going to an unfamiliar place will help. Elizabeth, JEREMIAH as well feel patient being resistant to doing any therapy could be related to her being in an unfamiliar place. JEREMIAH let her know SW will fax the referral to [facility]. Flori PARKER
--- NOTE | 2021-04-16 15:18 | CASEMGMT ---
Meena from [facility] said they can take patient. Plan: d/c to [facility] when medically ready Flori PARKER
[2021-04-16 15:21] LABS: Pathologist Review Reviewed
[2021-04-16 15:51] LABS: Bedside Glucose 478 mg/dL (70-110)
[2021-04-16] MEDS: Atorvastatin Calcium 40 MG Tablet PO (21:43)
[2021-04-16 22:01] LABS: Bedside Glucose 435 mg/dL (70-110)
[2021-04-17 03:45] VITALS: BP 139/54; PULSE 58; RESP 18; TEMP 35.9; O2SAT 94
[2021-04-17] MEDS: Insulin Lispro 100 UNIT/ML INSULN.PEN SC ×2 (06:28→10:53)
[2021-04-17] MEDS: Levothyroxine 50 MCG Tablet PO (06:28)
[2021-04-17] MEDS: Lactated Ringers 1,000 ML 50 ML IV (06:31)
[2021-04-17 06:46] LABS: Bedside Glucose 278 mg/dL (70-110)
[2021-04-17 07:52] VITALS: O2SAT 90
[2021-04-17 08:30] LABS: Hematocrit 34.6 % (37-47); Hemoglobin 11.7 g/dL (12.0-15.0); Mean Corp Hgb Conc 33.8 g/dL (32-36); Mean Corpuscular Hgb 31.2 pg (27.0-32.0); Mean Corpuscular Volume 92.3 fL (81-99); Mean Platelet Vol. 12.3 fl (6.2-12.0); Platelet Count 130 K/mm3 (150-450); RBC Distribution Width CV 12.6 % (11.6-14.6); RBC Distribution Width SD 42.9 fl (35.1-43.9); Red Blood Count 3.75 M/mm3 (4.2-5.4); White Blood Count 3.3 K/mm3 (4.4-11.0)
[2021-04-17 08:52] LABS: ALB/GLOB Ratio 0.6 RATIO (0.9-2.4); AST(SGOT) 44 U/L (15-37); Alanine Aminotransfer ALT/SGPT 23 U/L (13-56); Albumin, Serum 2.7 g/dL (3.2-5.0); Alkaline Phosphatase 88 U/L (45-117); Anion Gap 11 (5-15); BUN 51 mg/dL (7-18); BUN/Creat Ratio 24.4 RATIO (10-20); Calcium,Total 8.8 mg/dL (8.5-10.1); Chloride 100 mmol/L (98-107); Creatinine, Serum 2.09 mg/dL (0.55-1.02); EST Glomerular Filtration Rate 24 mL/min (>60); Est Glom Filt Rate - Afr Amer 29 mL/min (>60); Estimated Creatinine Clearance 20.94 ml/min; Globulin 4.2 g/dL (2.2-4.2); Glucose 260 mg/dL (74-106); Potassium 4.5 mmol/L (3.5-5.1); Protein, Total 6.9 g/dL (6.4-8.2); Sodium Level 136 mmol/L (136-145)
[2021-04-17 10:45] VITALS: BP 135/46; PULSE 61; RESP 16; TEMP 36.6; O2SAT 92
[2021-04-17 10:51] VITALS: PULSE 61
[2021-04-17] MEDS: Ferrous Sulfate 325 MG Tablet PO (10:51)
[2021-04-17] MEDS: Metoprolol Tartrate 25 MG Tablet PO (10:51)
[2021-04-17] MEDS: Pantoprazole Sodium 40 MG Tablet PO (10:52)
[2021-04-17] MEDS: APIXABAN 2.5 MG TABLET PO (10:52)
[2021-04-17] MEDS: dexAMETHasone 4 MG Tablet 6 MG PO (10:52)
[2021-04-17 11:00] VITALS: O2SAT 95
[2021-04-17 11:05] LABS: Bedside Glucose 296 mg/dL (70-110)
[2021-04-17 11:33] VITALS: O2SAT 92
--- NOTE | 2021-04-17 11:39 | PCM.TXEXTCAR ---
Diet 04/15/21 13:50 Diet: Regular - General Dietary Modifications:: Cardiac / Heart Healthy Type of Dietary Supplement:: Glucerna Shake Is pt able to select menu?: No Diet Comments: 240 ml glucerna shake w/ meals tid Therapies Physical Therapy: Eval and Treat Occupational Therapy: Eval and Treat Speech Therapy: Eval and Treat Problem/Diagnosis (1) Acute hypoxemic respiratory failure: Status: Acute (2) COVID-19: Status: Acute (3) Leukopenia: Status: Acute (4) Lymphopenia: Status: Acute Allergies/Procedures Done in Hospital Allergies No Known Allergies Allergy (Verified 06/17/19 15:17) Type of Care/Length of Stay Estimated LOS: Convalescent Care Less Than 30 days Type of Care Needed: Skilled Rehab Potential: Fair Prognosis: Fair Additional Orders/Day of Discharge Day of Discharge: 04/17/21 Dietary and Speech Recommendations Dietitian Recommendations/Changes: Will liberalize diet to Regular d/t s/s of malnutrition Will provide 240 ml glucerna shake with meals for increased nutrition if consumed. Discharge Plan Admission Admit Date/Time: 04/13/21 12:03 Primary Reason for Your Visit: [place] [address] infection Attending Provider: Juan Ramon Gonzalez Primary Care Provider: Dorina Hernandez Instructions Additional Instructions / Restrictions: Patient is to remain in [place] [id number] isolation until 04/23/21 to complete a 10 day quarantine. Discharge Orders/Prescriptions Prescriptions: New dexamethasone [Decadron] 6 mg tablet 6 mg PO DAILY Qty: 6 RF: 0 Continued ferrous sulfate 325 mg (65 mg iron) tablet 325 mg PO DAILY RF: 0 levothyroxine 50 mcg capsule 50 mcg capsule 50 mcg PO DAILY RF: 0 furosemide 40 mg tablet 40 mg PO DAILY RF: 0 metoprolol tartrate 25 mg tablet 25 mg PO BID RF: 0 apixaban 2.5 mg tablet 2.5 mg PO BID Qty: 90 RF: 3 metformin 500 MG tablet 500 mg PO BID RF: 0 atorvastatin 40 MG tablet 40 mg PO DAILY RF: 0 fluticasone propionate 1 INHALER inhaler 2 puff Inhalation PRN PRN (Reason: Nasal Congestion) RF: 0 acetaminophen 325 MG tablet 325 mg PO Q6H PRN PRN (Reason: Pain) RF: 0 Referrals / Follow Up: Dorina Hernandez MD [Primary Care Provider] - Within 2 Weeks Disposition Disposition (needs filled in before D/C Order can be placed): Home, Self Care
--- NOTE | 2021-04-17 12:20 | PHA.DC.MR ---
Pharmacy Service has performed discharge medication reconciliation for this patient. The patient's discharge medication list was reviewed for discrepancies and discrepancies were resolved. Home Medications metformin 500 mg PO BID 12/25/17 acetaminophen 325 mg PO Q6H PRN PRN 07/25/18 atorvastatin 40 mg PO DAILY 07/25/18 fluticasone propionate 2 puff INHALATION PRN PRN 07/25/18 ferrous sulfate 325 mg (65 mg iron) tablet 325 mg PO DAILY tab 08/18/18 levothyroxine 50 mcg capsule 50 mcg PO DAILY 08/18/18 apixaban 2.5 mg tablet 2.5 mg PO BID #90 tab 06/17/19 furosemide 40 mg tablet 40 mg PO DAILY tab 06/17/19 metoprolol tartrate 25 mg tablet 25 mg PO BID 06/17/19 dexamethasone [Decadron] 6 mg PO DAILY #6 tab 04/17/21
--- NOTE | 2021-04-17 12:56 | CASEMGMT ---
Patient is ready for discharge to [facility]. JEREMIAH arranged for patient to get picked up at 2p via cot. JEREMIAH faxed orders and discharge time to [facility]. JEREMIAH also called Meena at [facility] and left her a voice mail letting her know above. JEREMIAH also called patient's granddaughter and POA Elizabeth letting her know patient is going to [facility] today at 2p. SW let her know patient will need clothes while at [facility]. JEREMIAH completed a convalescent on HENS. JEREMIAH updated RN and loan secretary. Per chart and RN patient is only alert and oriented X1. Plan: d/c to [facility] under skilled level of care on convalescent stay. [facility] transported via cot. Flori Calderon [employer] KEITH
--- NOTE | 2021-04-17 13:29 | NURSING ---
Report called to [facility], no further questions voiced. Called daughter colby to notify of transfer, thankful for care.
--- NOTE | 2021-04-17 14:42 | PCM.DC.SUM ---
Documented by User: Chris BA 04/17/21 14:48 Providers Date of Admission: 04/13/21 Primary Care Physician: Dr. Dorina Hernandez MD Reason For Visit: ACUTE HYPOXIC RESPIRATORY FAILURE 2/2 COVID 19 Diagnosis Discharge Diagnosis (1) Acute hypoxemic respiratory failure: Status: Acute Code(s): J96.01 - Acute respiratory failure with hypoxia (2) COVID-19: Status: Acute Code(s): U07.1 - COVID-19 (3) Leukopenia: Status: Acute Code(s): D72.819 - Decreased white blood cell count, unspecified (4) Lymphopenia: Status: Acute Code(s): D72.810 - Lymphocytopenia Medications at Discharge Home Medications metformin 500 mg PO BID 12/25/17 acetaminophen 325 mg PO Q6H PRN PRN 07/25/18 atorvastatin 40 mg PO DAILY 07/25/18 fluticasone propionate 2 puff INHALATION PRN PRN 07/25/18 ferrous sulfate 325 mg (65 mg iron) tablet 325 mg PO DAILY tab 08/18/18 levothyroxine 50 mcg capsule 50 mcg PO DAILY 08/18/18 apixaban 2.5 mg tablet 2.5 mg PO BID #90 tab 06/17/19 furosemide 40 mg tablet 40 mg PO DAILY tab 06/17/19 metoprolol tartrate 25 mg tablet 25 mg PO BID 06/17/19 dexamethasone [Decadron] 6 mg PO DAILY #6 tab 04/17/21 Hospital Course Summary of Care Provided Minutes Spent on Discharge: 35 Hospital Course: Disposition: Patient to discharge to [facility]. 1) Acute hypoxic respiratory failure secondary to COVID-19 pneumonia Respiratory status is improved over the course of admission patient is currently satting 92% on room air. Over course of admission patient was treated on Decadron and remdesivir. Remdesivir was subsequently canceled due to worsening renal function. Patient continued on Decadron to complete 10-day course. 2) Dementia Patient is chronically confused with word salad at baseline. 3) FLORA on CKD stage III Creatinine 2.09 admission. Baseline appears between 1.5 and 2. 4) Anemia Resolved, hemoglobin 11.7 at discharge. 5) Diabetes mellitus type II Continue home diabetic regimen. 6) Paroxysmal A. fib Continue metoprolol and Eliquis. 7) Dyslipidemia Continue statin. 8) Hypertension Continue home BP regimen. 9) Hypothyroidism Continue Synthroid Patient seen by Chris Hester PA-C, under the supervision of Dr. Gonzalez. Physical Exam Narrative Patient is an 85-year-old female lying in bed alert to self. Patient cannot provide much insight into current condition as she is chronically confused at baseline secondary to dementia. Patient does not appear in acute distress. Const alert and no apparent distress HEENT normocephalic, head/scalp atraumatic, hearing grossly normal bilaterally and moist oral mucous membranes Eyes PERRL, EOMs intact bilaterally and conjunctivae normal Neck no lymphadenopathy, supple and no JVD Resp normal respiratory effort, no retractions, no use of accessory muscles and clear to auscultation bilaterally Cardio regular rate, regular rhythm, no murmurs and no JVD GI normal to inspection, nondistended, normoactive bowel sounds, soft to palpation and non-tender Extremity normal to inspection, full ROM and no clubbing, cyanosis or edema Skin no rashes or lesions noted, no wounds and skin turgor normal Neuro CN's II-XII intact bilaterally Psych affect normal Medical Records Data Medical Nutrition Assessment Dietitian: Malnutrition Criteria Met Start: 04/15/21 13:48 Freq: Status: Active Protocol: Document 04/15/21 13:49 SLA (Rec: 04/15/21 13:50 SLA [id number]) Nutrition Malnutrition Evidence of Malnutrition Exists Yes Malnutrition (severe): Acute Illness/Injury Evidenced By Suboptimal Energy Intake ( Severe),Weight Loss (Severe) Intake Problem Inadequate Oral Intake Status Inactive Problem Clinical Problem Acute Disease or Injury Related Malnutrition Etiology related to confusion, acute illness and inability to consume adequate nutrition to meet est nutritional needs Signs/Symptoms as evidenced by poor po intake at meals and 3.1% wt loss since admission. Status Active Problem Altered Nutrient-Related Laboratory Values Etiology related to diabetes and steroid administration Signs/Symptoms as evidenced by gluc 156 Status Active Problem Recommendation Dietitian Recommendations/Changes Will liberalize diet to Regular d/t s/s of malnutrition Will provide 240 ml glucerna shake with meals for increased nutrition if consumed. Weight / BMI Weight Weight: 241 lb 6.499 oz Body Mass Index (BMI) 35.6 ABG / Lab / Microbiology Data Result Diagrams: 04/17/21 07:50 04/17/21 07:50 Laboratory: Laboratory Results - last 24 hr 04/13/21 10:50: Diff Path Review Reviewed 04/16/21 15:42: POC Glucose 478 H* 04/16/21 21:49: POC Glucose 435 H 04/17/21 06:27: POC Glucose 278 H 04/17/21 07:50: WBC 3.3 L, RBC 3.75 L, Hgb 11.7 L, Hct 34.6 L, MCV 92.3, MCH 31.2, MCHC 33.8, RDW Std Deviation 42.9, RDW Coeff of Sosa 12.6, Plt Count 130 L, MPV 12.3 H 04/17/21 07:50: Sodium 136, Potassium 4.5, Chloride 100, Carbon Dioxide 25.0, Anion Gap 11, BUN 51 H, Creatinine 2.09 H, Estim Creat Clear Calc 20.94, Est GFR (MDRD) Af Amer 29 L, Est GFR (MDRD) Non-Af 24 L, BUN/Creatinine Ratio 24.4 H, Glucose 260 H, Calcium 8.8, Total Bilirubin 0.60, AST 44 H, ALT 23, Alkaline Phosphatase 88, Total Protein 6.9, Albumin 2.7 L, Globulin 4.2, Albumin/Globulin Ratio 0.6 L 04/17/21 10:50: POC Glucose 296 H Microbiology: Microbiology 04/13/21 10:50 Blood Culture (Wb) - Right Hand Blood Culture - Preliminary No growth in 48 hours. 04/13/21 10:30 Blood Culture (Wb) - Arm Left Blood Culture - Preliminary No growth in 48 hours. 04/14/21 22:35 Stool C. difficile DNA Amplification - Final 04/13/21 11:15 Nasal Secretion SARS-CoV-2 Antigen (Rapid) - Final SARS-CoV-2 (COVID 19) Meaningful Use Info Meaningful Use Diagnoses (Choose all that apply): None applicable Discharge Plan Admission Admit Date/Time: 04/13/21 12:03 Primary Reason for Your Visit: COVID-19 infection Attending Provider: Juan Ramon Gonzalez Primary Care Provider: Dorina Hernandez Instructions Additional Instructions / Restrictions: Patient Problems: Altered Health Status related to Hospitalization Patient Goals: *Optimal Level of Health *Keep Appointments *Medication Compliance *Remain SafePatient is to remain in COVID-19 isolation until 04/23/21 to complete a 10 day quarantine. Discharge Orders/Prescriptions Prescriptions: New dexamethasone [Decadron] 6 mg tablet 6 mg PO DAILY Qty: 6 RF: 0 Continued ferrous sulfate 325 mg (65 mg iron) tablet 325 mg PO DAILY RF: 0 levothyroxine 50 mcg capsule 50 mcg capsule 50 mcg PO DAILY RF: 0 furosemide 40 mg tablet 40 mg PO DAILY RF: 0 metoprolol tartrate 25 mg tablet 25 mg PO BID RF: 0 apixaban 2.5 mg tablet 2.5 mg PO BID Qty: 90 RF: 3 metformin 500 MG tablet 500 mg PO BID RF: 0 atorvastatin 40 MG tablet 40 mg PO DAILY RF: 0 fluticasone propionate 1 INHALER inhaler 2 puff Inhalation PRN PRN (Reason: Nasal Congestion) RF: 0 acetaminophen 325 MG tablet 325 mg PO Q6H PRN PRN (Reason: Pain) RF: 0 Referrals / Follow Up: Dorina Hernandez MD [Primary Care Provider] - Within 2 Weeks Disposition Disposition (needs filled in before D/C Order can be placed): Home, Self Care Documented by User: Dr. Juan Ramon Gonzalez MD 04/17/21 14:55 Providers Date of Admission: 04/13/21 Reason For Visit: ACUTE HYPOXIC RESPIRATORY FAILURE 2/2 COVID 19 Medications at Discharge Home Medications metformin 500 mg PO BID 12/25/17 acetaminophen 325 mg PO Q6H PRN PRN 07/25/18 atorvastatin 40 mg PO DAILY 07/25/18 fluticasone propionate 2 puff INHALATION PRN PRN 07/25/18 ferrous sulfate 325 mg (65 mg iron) tablet 325 mg PO DAILY tab 08/18/18 levothyroxine 50 mcg capsule 50 mcg PO DAILY 08/18/18 apixaban 2.5 mg tablet 2.5 mg PO BID #90 tab 06/17/19 furosemide 40 mg tablet 40 mg PO DAILY tab 06/17/19 metoprolol tartrate 25 mg tablet 25 mg PO BID 06/17/19 dexamethasone [Decadron] 6 mg PO DAILY #6 tab 04/17/21 Hospital Course Operations None Summary of Care Provided Minutes Spent on Discharge: 35 Hospital Course: This patient was seen in conjunction with Chris Hester PA-C. I have independently interviewed and examined the patient and reviewed pertinent historical, laboratory, and other data. Please refer to Chris Hester PA-C's note for details of this patient's presentation, findings, and recommendations. I have reviewed Chris Hester PA-C's note and concur with documented findings. In brief, patient is an 85-year-old lady admitted with COVID-19 pneumonia admitted to monitored bed for further management Hospital course as documented above ABG / Lab / Microbiology Data Result Diagrams: 04/17/21 07:50 04/17/21 07:50 Discharge Plan Admission Admit Date/Time: 04/13/21 12:03 Primary Reason for Your Visit: COVID-19 infection Attending Provider: Juan Ramon Gonzalez Primary Care Provider: Dorina Hernandez Instructions Additional Instructions / Restrictions: Patient Problems: Altered Health Status related to Hospitalization Patient Goals: *Optimal Level of Health *Keep Appointments *Medication Compliance *Remain SafePatient is to remain in COVID-19 isolation until 04/23/21 to complete a 10 day quarantine. Discharge Orders/Prescriptions Prescriptions: New dexamethasone [Decadron] 6 mg tablet 6 mg PO DAILY Qty: 6 RF: 0 Continued ferrous sulfate 325 mg (65 mg iron) tablet 325 mg PO DAILY RF: 0 levothyroxine 50 mcg capsule 50 mcg capsule 50 mcg PO DAILY RF: 0 furosemide 40 mg tablet 40 mg PO DAILY RF: 0 metoprolol tartrate 25 mg tablet 25 mg PO BID RF: 0 apixaban 2.5 mg tablet 2.5 mg PO BID Qty: 90 RF: 3 metformin 500 MG tablet 500 mg PO BID RF: 0 atorvastatin 40 MG tablet 40 mg PO DAILY RF: 0 fluticasone propionate 1 INHALER inhaler 2 puff Inhalation PRN PRN (Reason: Nasal Congestion) RF: 0 acetaminophen 325 MG tablet 325 mg PO Q6H PRN PRN (Reason: Pain) RF: 0 Referrals / Follow Up: Dorina Hernandez MD [Primary Care Provider] - Within 2 Weeks Disposition Disposition (needs filled in before D/C Order can be placed): Home, Self Care Charges/Coding Visit Charges Inpatient E&M: 31576 Disch Hosp Hospital Course Operations None
== END 2021-04-17 14:52 | disposition home or self-care (01) | DRG 177 ==
LOC: ED 12:15 → PCU 12:58
PROVIDERS: Admitting Provider Internal Medicine; Emergency Provider Emergency Medicine; PCP Family Medicine; Visit Provider Internal Medicine
DX: U07.1 COVID-19 (principal); J12.82 Pneumonia due to coronavirus disease 2019; J96.01 Acute respiratory failure with hypoxia; E43 Unspecified severe protein-calorie malnutrition; I13.0 Hypertensive heart and chronic kidney disease with heart failure and stage 1 through stage 4 chronic kidney disease, or unspecified chronic kidney disease; N17.9 Acute kidney failure, unspecified; N18.4 Chronic kidney disease, stage 4 (severe); I50.32 Chronic diastolic (congestive) heart failure; D63.8 Anemia in other chronic diseases classified elsewhere; E66.9 Obesity, unspecified; Z68.35 Body mass index [BMI] 35.0-35.9, adult; I48.0 Paroxysmal atrial fibrillation; E03.9 Hypothyroidism, unspecified; E11.22 Type 2 diabetes mellitus with diabetic chronic kidney disease; E78.00 Pure hypercholesterolemia, unspecified; E78.5 Hyperlipidemia, unspecified; F03.90 Unspecified dementia, unspecified severity, without behavioral disturbance, psychotic disturbance, mood disturbance, and anxiety; Z66 Do not resuscitate; Z79.01 Long term (current) use of anticoagulants; Z79.84 Long term (current) use of oral hypoglycemic drugs; Z79.899 Other long term (current) drug therapy
CPT/HCPCS: 36415; 71045; 80053; 82962; 83605; 83735; 84100; 84484; 85025; 85027; 87040; 87426; 87493; 97110; 97162; 97166; 97530; 97535; 97803; 99251; 99285; J7050; J7120; A4216; G0463